=== PATIENT | male | born 1965 | race Caucasian/White ===

== ENCOUNTER 2020-02-10 14:00 | Outpatient (RCR) | payer BC, SELFPAY ==
--- NOTE | 2020-05-16 12:04 | MHC.PT.DC ---
[facility] [place] Office [place] Office [place] Office [address] Jeff Benavidez [address] [phone] F: [phone] F: [phone] F: [phone] F: [phone] Physical Therapy Discharge Report Diagnosis: NECK PAIN AND BACK PAIN Date of Surgery: NA Date of Evaluation: 01/27/20 Date of Discharge: Treatments to Date: 5 Cancellations to Date: 0 No Shows to Date: 0 Discharge Status: Patient Elected to Stop Discharge Summary: Pt LAST SEEN ON 02/10/20. PER THAT NOTE:02/10/20 pt wants PT on hold x 2 weeks to verify insurance coverage. NO FURTHER APPTS SCHEDULED Electronically signed by: CHRISTINA KC PT Please sign and return to therapist. Thank you for your referral.
--- NOTE | 2020-05-16 12:05 | MHC.PT.DC ---
[facility] [place] Office [place] Office [place] Office [address] Jeff Benavidez [address] [phone] F: [phone] F: [phone] F: [phone] F: [phone] Physical Therapy Discharge Report Diagnosis: NECK PAIN AND BACK PAIN Date of Surgery: NA Date of Evaluation: 01/27/20 Date of Discharge: Treatments to Date: 5 Cancellations to Date: 0 No Shows to Date: 0 Discharge Status: Patient Elected to Stop Discharge Summary: Pt LAST SEEN ON 02/10/20. PER THAT NOTE:02/10/20 pt wants PT on hold x 2 weeks to verify insurance coverage. NO FURTHER APPTS SCHEDULED Electronically signed by: CHRISTINA KC PT Please sign and return to therapist. Thank you for your referral.
== END 2020-05-16 12:05 | disposition other institution (70) ==
LOC: HO.PT 14:00
PROVIDERS: PCP Internal Medicine; Visit Provider Internal Medicine
DX: M54.9 Dorsalgia, unspecified (principal); M54.2 Cervicalgia
CPT/HCPCS: 97110; 97162

== ENCOUNTER 2020-02-28 10:03 | Outpatient (REF) | payer BC, SELFPAY ==
[2020-02-28 11:35] LABS: Anion Gap 13 (12-20); Blood Urea Nitrogen 15 mg/dL (9-16); Calcium 9.1 mg/dL (8.4-10.2); Carbon Dioxide 26 mmol/L (22-29); Chloride 105 mmol/L (96-108); Estimated Glomerular Filt Rate > 60; Glucose Fasting 92 mg/dL (60-99); Potassium 4.4 mmol/l (3.3-5.1); Sodium 140 mmol/L (135-145)
[2020-02-28 12:11] LABS: Folate 15.4 ng/mL (> or = 4.0); Vitamin B12 376 pg/mL (200-900)
== END 2020-02-28 10:04 | disposition home or self-care (01) ==
LOC: HO.LAB 10:03
PROVIDERS: PCP Internal Medicine; Visit Provider Psychiatry & Neurology Neurology
DX: R20.2 Paresthesia of skin (principal)
CPT/HCPCS: 80048; 82550; 82607; 82746; 86618

== ENCOUNTER 2021-03-18 12:47 | Outpatient (REF) | payer OTHER, SELFPAY | END 2021-03-18 12:48 | disposition home or self-care (01) | LOC: HO.LAB 12:47 | PROVIDERS: Visit Provider Urology | DX: Z12.5 Encounter for screening for malignant neoplasm of prostate (principal); N32.0 Bladder-neck obstruction | CPT/HCPCS: 36415; 84153 ==

== ENCOUNTER → 2021-03-20 16:03 | Outpatient (BNVA) | payer OTHER, SELFPAY | PROVIDERS: PCP Internal Medicine; Visit Provider Urology ==

== ENCOUNTER 2023-03-18 11:39 | Outpatient (AMB) | payer BC, SELFPAY ==
[2023-03-18 11:42] VITALS: BP 114/70; PULSE 100; O2SAT 98; BMI 33.9
--- NOTE | 2023-03-18 11:42 | MHC.PC.OV ---
Vital Signs 03/18/23 11:42 Height 6 ft 2 in Weight 264 lb BMI 33.9 BP 114/70 Blood Pressure Location Lt brachial Position Sitting Pulse 100 Pulse Source Pulse Oximeter Pulse Oximetry (%) 98 Oxygen Delivery Method Room Air Intake Visit Reasons: Ear popping, left ear more than the right Train Operations Supervisor Required: No Machine Set Up Operator Paper Goods: Not Required per policy Accompanied by: Self / Same As Patient Allergies NUT FLAVOR Allergy (Unknown, Uncoded 03/18/23 11:42) ANAPHYLAXIS Medication List - Last Reconciled 03/19/23 by Farhan Gallo MD albuterol sulfate 90 mcg/actuation 2 puffs inhalation Q6H PRN naproxen (Naprosyn) 500 mg PO BID PRN promethazine 12.5 mg PO BID tamsulosin 0.8 mg (2 x 0.4 mg) PO BEDTIME 90 days Tobacco use date assessed: 06/12/22 Dental Screening Dental Screen Date: 03/18/23 Did you have a dental visit in the last 12 months?: Yes Did you have a dental problem in the last 6 months where you did not have access to dental care?: No Was dental information given to patient?: Patient has dentist HPI Ear popping, left ear more than the right HPI Details left ear pain chronically PFSH Medical History Eczema Surgical History History of surgery History of cataract surgery Family History Father No problems noted. Mother No problems noted. Sister Cervical cancer Social History Housing: House Alcohol intake: current Alcohol intake frequency: 0-2 drinks per day Patient Tobacco Use Status: Never used Tobacco Second Hand Smoke Exposure: No service: No Current occupational status: employed Cognitive needs: No Hearing needs: No Vision needs: No Questionnaire Thrive Questionnaire Date Thrive assessed: 06/12/22 PASTOR-7 AMB Questionnaire PASTOR-7 Date PASTOR - 7 assessed: 06/12/22 Source: Developed by Drs. Flo French, Irais Espinoza, Nixon Barroso and colleagues, with an educational reny from [email or web address]. Review of Systems Const Denies chills, Denies headache(s) and Denies weight loss ENT Denies headache(s) Card Denies chest pain, Denies syncope, Denies irregular heart rhythm and Denies dyspnea Resp Denies chest congestion, Denies cough and Denies dyspnea GI Denies abdominal pain, Denies change in stool character, Denies nausea and Denies vomiting Musc Denies deformity and Denies joint swelling Neuro Denies syncope and Denies headache(s) Physical exam (Primary Care) Vital Signs: Last Vital Signs Pulse 100 03/18/23 11:42 BP 114/70 03/18/23 11:42 Pulse Ox 98 03/18/23 11:42 Oxygen Delivery Method Room Air 03/18/23 11:42 BMI result Body Mass Index 33.9 Tobacco/Smoking Status: Tobacco use Status Tobacco use date assessed 06/12/22 03/18/23 11:46 Patient Tobacco Use Status Never used Tobacco 03/18/23 11:46 Thrive Assessment: Date of Thrive Assessment Date Thrive assessed 06/12/22 03/18/23 11:46 Const General: cooperative, comfortable, no acute distress and alert HENMT Other: TMs nl Neck Neck: Yes no lymphadenopathy Thyroid: Thyroid normal Resp Effort & Inspection: normal respiratory effort Auscultation: clear to auscultation bilaterally Percussion: percussion normal Cardio Jugular venous distension: no JVD Palpation: normal PMI Rate: regular rate Rhythm: regular rhythm Heart sounds: S1 normal heart sound present and S2 normal heart sound present GI Inspection: Yes normal to inspection Palpation (GI): No hepatosplenomegaly present Skin General skin exam: no rashes or lesions noted Extrem General: Yes no clubbing, cyanosis or edema Assessment and Plan Assessment & Plan (1) Otalgia of left ear: Code(s): H92.02 - Otalgia, left ear Plan: ref ent Orders: Referrals Ear/Nose/Throat Referral H92.09 - Otalgia, unspecified ear Coding Level of Care Code Est Pt Level 3 (52462) Diagnoses Otalgia of left ear H92.02
== END 2023-03-18 11:52 | disposition home or self-care (01) ==
PROVIDERS: PCP Internal Medicine; Visit Provider Internal Medicine
DX: H92.02 Otalgia, left ear (principal)
CPT/HCPCS: 99213

== ENCOUNTER 2023-03-20 13:17 | Outpatient (AMB) | payer BC, SELFPAY ==
--- NOTE | 2023-03-20 13:34 | MHC.OFFVIS ---
Intake Intake Visit Reasons: 1yr follow up Intake Note: Patient is Present for Follow Up Urology Medication: Tamsulosin Antibiotic Allergies: None Blood Thinners: None PVR: 0ml Allergies NUT FLAVOR Allergy (Unknown, Uncoded 03/20/23 13:41) ANAPHYLAXIS HPI HPI Comments History of Present Illness Details Omid ORTIZ is a very pleasant male. He is a patient of Dr Gallo. He was seen in the office today for the following urologic conditions. - lower urinary tract symptoms - erectile dysfunction Progressive disease Continuing weakness of stream Nocturia x2 Discussed GreenLight laser prostatectomy Erectile dysfunction still responsive to on demand sildenafil Prescription provided Recent job change now working for a [employer] Lower Urinary Tract Symptoms:? Current visit is for?further evaluation of, lower urinary tract symptoms, predominate obstructive symptoms.? Current treatment includes?alpha genie - tamsulosin 0.8 mg.? Prostate Symptom Score?04/07 Moderate (9-19), Bother 3.? Symptoms include?04/07 , incomplete emptying, weak stream, nocturia (>2), and are progressing.? PSA 03/10 1.3 ? Results from testing include? uroflow was performed ?No ? transrectal ultrasound ?No ? renal/bladder us ?No ? Prostate volume?30-50gm.? Testing at next visit will include?bladder scan.? Treatment plan?Continue with increased dose tamsulosin [facility] Medical History Eczema Surgical History History of surgery History of cataract surgery Family History Father No problems noted. Mother No problems noted. Sister Cervical cancer Social History Housing: House Alcohol intake: current Alcohol intake frequency: 0-2 drinks per day Patient Tobacco Use Status: Never used Tobacco Second Hand Smoke Exposure: No service: No Current occupational status: employed Cognitive needs: No Hearing needs: No Vision needs: No Review of Systems Const Denies chills and Denies fever(s) Card Reports no additional complaints and Denies syncope Resp Denies cough GI Denies abdominal pain and Denies heartburn Reports as per HPI and Denies change in libido Neuro Denies syncope Psych Denies change in libido Endo Denies change in libido Physical Exam Const General: cooperative, healthy appearing, comfortable and no acute distress Orientation/consciousness: patient oriented x3 HEENT Face and sinus: Yes normal facial exam Mouth: moist mucous membranes Neck Neck: Yes normal visual inspection, Yes full ROM and Yes trachea midline Chest Chest palpation & inspection: normal inspection of the chest Resp Effort & Inspection: normal respiratory effort, able to speak in complete sentences and no respiratory distress GI Inspection: Yes normal to inspection Back/Spine/Pelvis Cervical Spine: normal cervical lordosis Thoracic/Lumbar Spine: thoracic and lumbar spine normal to inspection Skin General skin exam: no rashes or lesions noted Neuro General: patient oriented x3, gait normal, tone normal and moves all extremities Extrem General: Yes normal to inspection and Yes capillary refill normal Office Procedures Post Void Residual Post Residual Void Post Void Residual (PVR): 0 24507-Gmwy Void Residual by ultrasound Results AMB Urinalysis, Automated UA Leukoctes 0 Ray/uL Last Edit by PADILLA Murphy on 03/20/23 13:49 UA Nitrite Negative Last Edit by Comfort Brooks Stephy on 03/20/23 13:49 UA Urobilinogen 0.2 mg/dL Last Edit by PADILLA Murphy on 03/20/23 13:49 UA Protein 15 mg/dL Last Edit by Comfort Brooks Stephy on 03/20/23 13:49 UA pH 6.5 Last Edit by PADILLA Murphy on 03/20/23 13:49 UA Blood 0 Doyle/uL Last Edit by Comfort Brooks Stephy on 03/20/23 13:49 UA Specific [place]ont 1.015 Last Edit by PADILLA Murphy on 03/20/23 13:49 UA Ketone Negative Last Edit by PADILLA Murphy on 03/20/23 13:49 UA Bilirubin 0 mg/dL Last Edit by PADILLA Murphy on 03/20/23 13:49 UA Glucose 0 mg/dL Last Edit by PADILLA Murphy on 03/20/23 13:49 Assessment & Plan Assessment & Plan (1) Erectile dysfunction: Code(s): N52.9 - Male erectile dysfunction, unspecified Qualifiers: Erectile dysfunction type: vasculogenic (2) Nocturia more than twice per night: Code(s): R35.1 - Nocturia Plan We discussed the nature of the decision and reasonable options for performing a prostate intervention. Interventions include TURP, GreenLight laser enucleation of the prostate, GreenLight laser ablation of the prostate, transurethral incision of the prostate, and I-Tend prostate procedure. Options such as medical therapy were discussed. The relative uncertainties and benefits related to each alternate procedure were adequately discussed. General surgical risks including, but not limited to, pain, bleeding, infection, myocardial infarction, pulmonary embolus, deep vein thrombosis and cerebrovascular accident which may result in further hospitalization were discussed. Full disclosure of the procedure as well as all major risks, benefits and complications were discussed including but not limited to damage to the urethra or bladder neck, recurrent BPH, retrograde ejaculation, bladder infection, urge, de salvador frequency, incomplete emptying, dysuria, remote chance of erectile dysfunction, epididymitis, and meatal stenosis. The success rate of the procedure was discussed. Success of the procedure in the short-term does not necessarily guarantee that long-term success will be maintained. Suitable follow up will need to be maintained. The patient showed understanding of discussion. An opportunity was provided for questions to be answered and wishes to proceed with the following procedure. - GreenLight laser prostatectomy Orders: Orders AMB Post Void Residual by ultrasound Today R35.1 - Nocturia AMB Urinalysis Automated Today Z13.9 - Encounter for screening, unspecified Medications: New sildenafil administer 60 minutes before intended activity 100 mg PO ONCE PRN 30 tabs 1RF sexual activity 30 days N52.9 - Male erectile dysfunction, unspecified Refilled tamsulosin 0.8 mg (2 x 0.4 mg) PO BEDTIME 180 caps 1RF 90 days Patient Instructions: Imaging studies, laboratory and physical exam results were discussed and reviewed in detail. No major barriers to patient understanding were identified. An opportunity to ask questions regarding the treatment plan was provided. All questions were answered. The patient expressed understanding and agreement with the above treatment plan. The patient is aware they should contact our office by phone for worsening of their current condition or the appearance of new urologic symptoms. Compliance is encouraged with any medications and followup testing that is ordered. It is a privilege to participate in the urologic care of your patient. If you have any questions or concerns regarding treatment for the above conditions, or other urologic issues, please do not hesitate to contact me. The office telephone contact is [phone]. This note is constructed using voice recognition software. While every effort has been made to ensure accuracy horticultural farmer errors may have been included. Yours sincerely, Dr Brijesh Camejo MD, [facility] - Urology Providers of Expert, Compassionate Care for the Genitourinary System Coding Level of Care Code Est Pt Level 4 (37421) Diagnoses Erectile dysfunction N52.9 Erectile dysfunction type: vasculogenic Nocturia more than twice per night R35.1 CPT Codes Post Residual Void - PVR CPT Code: 66901-Pdyn Void Residual by ultrasound ([id number])
== END 2023-03-20 14:06 | disposition home or self-care (01) ==
PROVIDERS: Visit Provider Urology
DX: N52.9 Male erectile dysfunction, unspecified (principal); R35.1 Nocturia; Z13.9 Encounter for screening, unspecified
CPT/HCPCS: 99214

== ENCOUNTER → 2023-03-20 13:17 | Outpatient (BNVA) | payer BC, SELFPAY | PROVIDERS: Visit Provider Urology | DX: N52.9 Male erectile dysfunction, unspecified (principal); R35.1 Nocturia | CPT/HCPCS: 51798; 81003 ==

== ENCOUNTER 2023-05-19 13:36 | Outpatient (AMB) | payer BC, SELFPAY ==
--- NOTE | 2023-05-19 13:38 | A.OFFVIS_ITS ---
Intake Intake Visit Reasons: Questions about Surgery(GreenLight Surgery) Intake Note: Patient presents today for a follow-up on: Questions about [facility] Surgery Meds- Sildenafil, Tamsulosin Allergies to Antibiotic- No Known Allergies Blood Thinner- None Detective Bureau Chief Required: No Allergies NUT FLAVOR Allergy (Unknown, Uncoded 05/19/23 13:40) ANAPHYLAXIS Medication List - Last Reconciled 05/19/23 by Brijesh Camejo MD albuterol sulfate 90 mcg/actuation 2 puffs inhalation Q6H PRN finasteride 5 mg PO DAILY 90 days naproxen (Naprosyn) 500 mg PO BID PRN promethazine 12.5 mg PO BID sildenafil 100 mg PO ONCE PRN 30 days tamsulosin 0.8 mg (2 x 0.4 mg) PO BEDTIME 90 days HPI HPI Comments History of Present Illness Details Omid ORTIZ is a very pleasant male. He is a patient of Dr Gallo. He was seen in the office today for the following urologic conditions. - lower urinary tract symptoms - erectile dysfunction Telemedicine Evaluation 15 min Consultation Shot Stats Misael Video attempted Trial of finasteride was relatively successful Progressive disease Continuing weakness of stream Nocturia x2 Erectile dysfunction still responsive to on demand sildenafil Prescription provided Recent job change now working for a [employer] Lower Urinary Tract Symptoms:? Current visit is for?further evaluation of, lower urinary tract symptoms, predominate obstructive symptoms.? Current treatment includes?alpha genie - tamsulosin 0.8 mg.? Prostate Symptom Score?04/07 Moderate (9-19), Bother 3.? Symptoms include?04/07 , incomplete emptying, weak stream, nocturia (>2), and are progressing.? PSA 03/10 1.3 ? Results from testing include? uroflow was performed ?No ? transrectal ultrasound ?No ? renal/bladder us ?No ? Prostate volume?30-50gm.? Testing at next visit will include?bladder scan.? Treatment plan?Continue with increased dose tamsulosin PFSH Medical History Eczema Surgical History History of surgery History of cataract surgery Family History Father No problems noted. Mother No problems noted. Sister Cervical cancer Social History Housing: House Alcohol intake: current Alcohol intake frequency: 0-2 drinks per day Patient Tobacco Use Status: Never used Tobacco Second Hand Smoke Exposure: No service: No Current occupational status: employed Cognitive needs: No Hearing needs: No Vision needs: No Review of Systems Const All systems reviewed & are unremarkable except as noted in HPI and below Reports no additional complaints Resp Reports no additional complaints GI Reports no additional complaints Reports as per HPI Musc Reports no additional complaints Physical Exam Telemedicine evaluation Appropriate responses Regular breathing rate and rhythm HEENT Head: Yes normal to inspection Ears: hearing grossly normal bilaterally Eyes General: appearance normal, both eyes and all related structures Neck Neck: Yes normal visual inspection Chest Chest palpation & inspection: normal inspection of the chest Resp Effort & Inspection: normal respiratory effort and able to speak in complete sentences Assessment & Plan Assessment & Plan (1) Erectile dysfunction: Code(s): N52.9 - Male erectile dysfunction, unspecified Qualifiers: Erectile dysfunction type: vasculogenic (2) Weak urinary stream: Code(s): R39.12 - Poor urinary stream Plan Three-month follow-up Medications: New finasteride 5 mg PO DAILY 90 tabs 1RF 90 days N40.1 - Benign prostatic hyperplasia with lower urinary tract symptoms, N13.8 - Other obstructive and reflux uropathy, R33.9 - Retention of urine, unspecified Refilled promethazine 12.5 mg PO BID 180 tabs 8RF R35.1 - Nocturia Patient Instructions: Imaging studies, laboratory and physical exam results were discussed and reviewed in detail. No major barriers to patient understanding were identified. An opportunity to ask questions regarding the treatment plan was provided. All questions were answered. The patient expressed understanding and agreement with the above treatment plan. The patient is aware they should contact our office by phone for worsening of their current condition or the appearance of new urologic symptoms. Compliance is encouraged with any medications and followup testing that is ordered. It is a privilege to participate in the urologic care of your patient. If you have any questions or concerns regarding treatment for the above conditions, or other urologic issues, please do not hesitate to contact me. The office telephone contact is [phone]. This note is constructed using voice recognition software. While every effort has been made to ensure accuracy pan reclaim processor errors may have been included. Yours sincerely, Dr Brijesh Camejo MD, [facility] - Urology Providers of Expert, Compassionate Care for the Genitourinary System Telehealth Telehealth Location of provider rendering services: practice address Location of patient: address on file Patient Identification confirmed using: Name, : Yes Telehealth method: voice only Patient verbally consented to treatment: Yes Patient verbally consented to billing insurance company: Yes Patient informed of any privacy concerns related to visit: Yes Coding Level of Care Code Tele Est Pt Level 3 (54609) Diagnoses Erectile dysfunction N52.9 Erectile dysfunction type: vasculogenic Weak urinary stream R39.12
== END 2023-05-19 15:03 | disposition home or self-care (01) ==
LOC: HO.HUSH 13:36
PROVIDERS: PCP Internal Medicine; Visit Provider Urology
DX: N52.9 Male erectile dysfunction, unspecified (principal); R39.12 Poor urinary stream
CPT/HCPCS: 99442

== ENCOUNTER → 2023-05-19 13:36 | Outpatient (BNVA) | payer BC, SELFPAY | PROVIDERS: PCP Internal Medicine; Visit Provider Urology ==

== ENCOUNTER 2023-08-19 14:03 | Outpatient (AMB) | payer BC, SELFPAY ==
--- NOTE | 2023-08-19 14:09 | A.OFFVIS_ITS ---
Intake Visit Reasons: Med Review(Finasteride) Intake Note: Patient is Present for Follow Up Med Review Urology Medication: Sildenafil, Tamsulosin, Finasteride Antibiotic Allergies: none Blood Thinners:none Patient states that he feels like the Finasteride is working well for him, states he does feel improvement Allergies NUT FLAVOR Allergy (Unknown, Uncoded 08/19/23 14:10) ANAPHYLAXIS Medication List - Last Reconciled 08/19/23 by Brijesh Camejo MD albuterol sulfate 90 mcg/actuation 2 puffs inhalation Q6H PRN finasteride 5 mg PO DAILY 90 days naproxen (Naprosyn) 500 mg PO BID PRN promethazine 12.5 mg PO BID sildenafil 100 mg PO ONCE PRN 30 days tamsulosin 0.8 mg (2 x 0.4 mg) PO BEDTIME 90 days HPI Comments Details: Omid ORTIZ is a very pleasant male. He is a patient of Dr Gallo. He was seen in the office today for the following urologic conditions. - lower urinary tract symptoms - erectile dysfunction Works at a [employer] Continue good response to combination therapy for urinary emptying Continue good response to on demand sildenafil Six-month follow-up repeat PSA Erectile dysfunction Responsive to on demand sildenafil Recent job change now working for a [id number] Lower Urinary Tract Symptoms:? Current visit is for?further evaluation of, lower urinary tract symptoms, predominate obstructive symptoms - progressive through single agent medication ? Current treatment includes?alpha genie - tamsulosin 0.8 mg and finasteride ? Prostate Symptom Score?04/07 Moderate (9-19), Bother 3.? Symptoms include?04/07 , incomplete emptying, weak stream, nocturia (>2), and are progressing.? PSA 03/10 1.3 ? Results from testing include? uroflow was performed ?No ? transrectal ultrasound ?No ? renal/bladder us ?No ? Prostate volume?30-50gm.? Testing at next visit will include?bladder scan.? Treatment plan?Continue with increased dose tamsulosin PFSH Medical History Eczema Surgical History History of surgery History of cataract surgery Family History Father No problems noted. Mother No problems noted. Sister Cervical cancer Social History Housing: House Alcohol intake: current Alcohol intake frequency: 0-2 drinks per day Patient Tobacco Use Status: Never used Tobacco Second Hand Smoke Exposure: No service: No Current occupational status: employed Cognitive needs: No Hearing needs: No Vision needs: No Review of Systems Const Denies chills and Denies fever(s) Card Reports no additional complaints and Denies syncope Resp Denies cough GI Denies abdominal pain and Denies heartburn Reports as per HPI and Denies change in libido Neuro Denies syncope Psych Denies change in libido Endo Denies change in libido Physical Exam Const General: cooperative, healthy appearing, comfortable and no acute distress Orientation/consciousness: patient oriented x3 HEENT Face and sinus: Yes normal facial exam Mouth: moist mucous membranes Neck Neck: Yes normal visual inspection, Yes full ROM and Yes trachea midline Chest Chest palpation & inspection: normal inspection of the chest Resp Effort & Inspection: normal respiratory effort, able to speak in complete sentences and no respiratory distress GI Inspection: Yes normal to inspection Back/Spine/Pelvis Cervical Spine: normal cervical lordosis Thoracic/Lumbar Spine: thoracic and lumbar spine normal to inspection Skin General skin exam: no rashes or lesions noted Neuro General: patient oriented x3, gait normal, tone normal and moves all extremities Extrem General: Yes normal to inspection and Yes capillary refill normal Assessment & Plan Assessment & Plan (1) Erectile dysfunction: Code(s): N52.9 - Male erectile dysfunction, unspecified Category: Medical Qualifiers: Erectile dysfunction type: vasculogenic (2) Weak urinary stream: Code(s): R39.12 - Poor urinary stream Category: Medical (3) Nocturia more than twice per night: Code(s): R35.1 - Nocturia Category: Medical Plan Six-month follow-up PSA Patient Instructions: Imaging studies, laboratory and physical exam results were discussed and reviewed in detail. No major barriers to patient understanding were identified. An opportunity to ask questions regarding the treatment plan was provided. All questions were answered. The patient expressed understanding and agreement with the above treatment plan. The patient is aware they should contact our office by phone for worsening of their current condition or the appearance of new urologic symptoms. Compliance is encouraged with any medications and followup testing that is ordered. It is a privilege to participate in the urologic care of your patient. If you have any questions or concerns regarding treatment for the above conditions, or other urologic issues, please do not hesitate to contact me. The office telephone contact is [phone]. This note is constructed using voice recognition software. While every effort has been made to ensure accuracy surplus property disposal agent errors may have been included. Yours sincerely, Dr Brijesh Camejo MD, [facility] - Urology Providers of Expert, Compassionate Care for the Genitourinary System Coding Level of Care Code Est Pt Level 3 (34221) Diagnoses Erectile dysfunction N52.9 Erectile dysfunction type: vasculogenic Weak urinary stream R39.12 Nocturia more than twice per night R35.1
== END 2023-08-19 14:45 | disposition home or self-care (01) ==
PROVIDERS: PCP Internal Medicine; Visit Provider Urology
DX: N52.9 Male erectile dysfunction, unspecified (principal); R39.12 Poor urinary stream; R35.1 Nocturia
CPT/HCPCS: 99213

== ENCOUNTER → 2023-08-19 14:03 | Outpatient (BNVA) | payer BC, SELFPAY | PROVIDERS: PCP Internal Medicine; Visit Provider Urology ==

== ENCOUNTER 2023-12-02 11:24 | Outpatient (AMB) | payer BC, SELFPAY ==
[2023-12-02 11:26] VITALS: BP 112/78; PULSE 106; O2SAT 95; BMI 34.1
--- NOTE | 2023-12-02 11:26 | MHC.PC.OV ---
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 Accompanied by: Self / Same As Patient Allergies NUT FLAVOR Allergy (Unknown, Uncoded 12/02/23 11:26) ANAPHYLAXIS Tobacco use date assessed: 06/12/22 Dental Screening Dental Screen Date: 12/02/23 Did you have a dental visit in the last 12 months?: Yes Did you have a dental problem in the last 6 months where you did not have access to dental care?: No Was dental information given to patient?: Patient has dentist HPI Regular visit HPI Details asthma; stable; uses rx occasionally PFSH Medical History Eczema Surgical History History of surgery History of cataract surgery Family History Father No problems noted. Mother No problems noted. Sister Cervical cancer Social History Housing: House Alcohol intake: current Alcohol intake frequency: 0-2 drinks per day Patient Tobacco Use Status: Never used Tobacco e-Cigarette/Vaping Use: Never Used Second Hand Smoke Exposure: No service: No Current occupational status: employed Cognitive needs: No Hearing needs: No Vision needs: No Questionnaire PHQ-9 Over the last 2 weeks, how often have you been bothered by any of the following problems? 1. Little interest or pleasure in doing things: not at all 2. Feeling down, depressed, or hopeless: not at all 3. Trouble falling or staying asleep, or sleeping too much: not at all 4. Feeling tired or having little energy: not at all 5. Poor appetite or overeating: not at all 6. Feeling bad about yourself - or that you are a failure or have let yourself or your family down: not at all 7. Trouble concentrating on things, such as reading the newspaper or watching television: not at all 8. Moving or speaking so slowly that other people could have noticed. Or the opposite - being so fidgety or restless that you have been moving around a lot more than usual: not at all 9. Thoughts that you would be better off or of hurting yourself in some way: not at all Total score: 0 Depression Screening Interpretation: Negative Depression Screening Done: Yes 75372 - PHQ-9 Billing: Yes Source: Developed by Drs. Flo French, Irais Espinoza, Nixon Barroso and colleagues, with an educational reny from [employer]. Thrive Questionnaire Date Thrive assessed: 12/02/23 I am a: Patient What is your living situation today?: I have a steady place to live THRIVE Score: 0 AUDIT C Alcohol Use Questionnaire (AUDIT-C) 1. How often do you have a drink containing alcohol?: Monthly or less 2. How many drinks containing alcohol do you have on a typical day when you are drinking?: 1 or 2 3. How often do you have six or more drinks on one occasion?: Never Total Score: 1 Score Reviewed/Action Taken: Yes PASTOR-7 AMB Questionnaire PASTOR-7 Date PASTOR - 7 assessed: 12/02/23 Feeling nervous, anxious, or on edge: 0 = Not at all Not being able to stop or control worryin = Not at all Worrying too much about different things: 0 = Not at all Trouble relaxin = Not at all Being so restless that it is hard to sit still: 0 = Not at all Becoming easily annoyed or irritable: 0 = Not at all Feeling afraid as if something awful might happen: 0 = Not at all Total PASTOR-7 score (0-4 normal; 5-9 mild; 10-14 moderate; 15-21 severe): 0 Source: Developed by Drs. Flo French, Nixon Rascon and colleagues, with an educational reny from [employer]. Review of Systems Const Denies chills, Denies headache(s) and Denies weight loss ENT Denies headache(s) Card Denies chest pain, Denies syncope, Denies irregular heart rhythm and Denies dyspnea Resp Denies chest congestion, Denies cough and Denies dyspnea GI Denies abdominal pain, Denies change in stool character, Denies nausea and Denies vomiting Musc Denies deformity and Denies joint swelling Neuro Denies syncope and Denies headache(s) Physical exam (Primary Care) Vital Signs: Last Vital Signs Pulse 106 H 12/02/23 11:26 BP 112/78 12/02/23 11:26 Pulse Ox 95 12/02/23 11:26 Oxygen Delivery Method Room Air 12/02/23 11:26 BMI result Body Mass Index 34.1 Tobacco/Smoking Status: Tobacco use Status Tobacco use date assessed 06/12/22 12/02/23 11:28 Patient Tobacco Use Status Never used Tobacco 12/02/23 11:28 e-Cigarette/Vaping Use Never Used 12/02/23 11:28 PHQ-9: PHQ-9 Score PHQ-9: Total score 0 12/02/23 11:28 Depression Screening Interpretation: Negative Thrive Assessment: Date of Thrive Assessment Date Thrive assessed 12/02/23 12/02/23 11:28 Const General: cooperative, comfortable, no acute distress and alert Neck Neck: Yes no lymphadenopathy Thyroid: Thyroid normal Resp Effort & Inspection: normal respiratory effort Auscultation: clear to auscultation bilaterally Percussion: percussion normal Cardio Jugular venous distension: no JVD Palpation: normal PMI Rate: regular rate Rhythm: regular rhythm Heart sounds: S1 normal heart sound present and S2 normal heart sound present GI Inspection: Yes normal to inspection Palpation (GI): No hepatosplenomegaly present Skin General skin exam: no rashes or lesions noted Extrem General: Yes no clubbing, cyanosis or edema Assessment and Plan Assessment & Plan (1) Asthma: Code(s): J45.909 - Unspecified asthma, uncomplicated Plan: stable; same rx Orders: Orders Lipid Panel Today Z13.220 - Encounter for screening for lipoid disorders Complete Blood Count Auto Diff Today Z13.0 - Encounter for screening for diseases of the blood and blood-forming organs and certain disorders involving the immune mechanism Comprehensive Cerulean. Panel Fast Today Z13.9 - Encounter for screening, unspecified Thyroid Stimulating Hormone Today Z13.29 - Encounter for screening for other suspected endocrine disorder Medications: Changed From albuterol sulfate 90 mcg/actuation 2 puffs inhalation Q6H PRN To Ventolin HFA 90 mcg/actuation (albuterol sulfate) 2 puffs inhalation Q6H PRN 18 grams 8RF shortness of breath or wheezing NS Coding Level of Care Code Est Pt Level 3 (63818) Diagnoses Asthma J45.909
== END 2023-12-02 11:44 | disposition home or self-care (01) ==
PROVIDERS: PCP Internal Medicine; Visit Provider Internal Medicine
DX: J45.909 Unspecified asthma, uncomplicated (principal)
CPT/HCPCS: 99213

== ENCOUNTER 2023-12-08 11:06 | Outpatient (REF) | payer BC, SELFPAY ==
[2023-12-08 11:33] LABS: MANUAL DIFF FLAG NO
[2023-12-08 12:11] LABS: Basophils Absolute Auto 0.1 X10*3/uL (0.0-0.2); Basophils Percent Auto 1.7 % (0-2); Eosinophils Absolute Auto 0.2 X10*3/uL (0.0-0.4); Eosinophils Percent Auto 2.8 % (0-4); Hematocrit 48.6 % (42.0-52.0); Hemoglobin 16.4 g/dl (14.0-18.0); Imm Gran Abs Auto 0.01 X10*3/uL (0.00-0.03); Imm Gran Pct Auto 0.2 % (0.0-0.4); Lymphocytes Absolute Auto 1.7 X10*3/uL (1.2-4.9); Mean Corpuscular HGB Conc 33.7 g/dl (31.0-36.0); Mean Corpuscular Hemoglobin 29.2 pg (27.0-33.0); Mean Corpuscular Volume 86.5 fL (80.0-98.0); Mean Platelet Volume 10.3 fL (9.4-12.4); Monocytes Absolute Auto 0.4 X10*3/uL (0.1-1.2); Monocytes Percent Auto 6.8 % (2-11); Neutrophils Absolute Auto 3.4 x10*3/uL (2.0-8.3); Neutrophils Percent Auto 59.5 % (45-73); Platelet Count 241 X10*3/uL (160-400); Red Blood Count 5.62 X10*6/uL (4.60-5.80); Red Cell Distribution Width 12.9 % (11.0-16.0); White Blood Count 5.7 X10*3/uL (4.8-10.8)
[2023-12-08 12:47] LABS: Alanine Aminotransferase 19 U/L (0-40); Albumin Level 4.7 g/dL (3.5-5.0); Alkaline Phosphatase 59 U/L (39-117); Anion Gap 12 (12-20); Aspartate Amino Transferase 18 U/L (5-37); Bilirubin Total 0.4 mg/dL (0.0-1.0); Blood Urea Nitrogen 12 mg/dL (9-16); Calcium 9.3 mg/dL (8.4-10.2); Carbon Dioxide 27 mmol/L (22-29); Chloride 105 mmol/L (96-108); Cholesterol 237 mg/dL (<200); Estimated Glomerular Filt Rate > 60; Glucose Fasting 95 mg/dL (60-99); HDL Cholesterol 42 mg/dL (>40); LDL Cholesterol Calculated 166 mg/dL (<100); Potassium 3.8 mmol/L (3.3-5.1); Sodium 140 mmol/L (135-145); Total Protein 7.4 g/dL (6.5-8.0); Triglycerides 148 mg/dL (<150)
[2023-12-08 13:03] LABS: Thyroid Stimulating Hormone 1.21 uIU/mL (0.32-4.0)
== END 2023-12-08 11:07 | disposition home or self-care (01) ==
LOC: HO.LAB 11:06
PROVIDERS: PCP Internal Medicine; Visit Provider Internal Medicine
DX: Z13.29 Encounter for screening for other suspected endocrine disorder (principal); Z13.0 Encounter for screening for diseases of the blood and blood-forming organs and certain disorders involving the immune mechanism; Z13.220 Encounter for screening for lipoid disorders; Z13.6 Encounter for screening for cardiovascular disorders
CPT/HCPCS: 36415; 80053; 80061; 84443; 85025

== ENCOUNTER 2024-02-08 11:36 | Outpatient (REF) | payer BC, SELFPAY ==
[2024-02-08 13:19] LABS: Prostate Specific Antigen 1.58 ng/mL (<0.05-4.0)
== END 2024-02-08 11:37 | disposition home or self-care (01) ==
LOC: HO.LAB 11:36
PROVIDERS: PCP Internal Medicine; Visit Provider Urology
DX: R39.12 Poor urinary stream (principal); Z12.5 Encounter for screening for malignant neoplasm of prostate
CPT/HCPCS: 36415; 84153

== ENCOUNTER 2024-02-19 14:19 | Outpatient (AMB) | payer BC, SELFPAY ==
--- NOTE | 2024-02-19 14:25 | A.OFFVIS_ITS ---
Intake Visit Reasons: 6m/PSA(set) Intake Note: Patient is present for PSA Follow Up Urology Med: Sildenafil, Tamsulosin, Finasteride Antibiotic Allergy: None Blood Thinner: None PSA: 02/08/2024 PSA: 1.58 Laser Engineer Required: No Accompanied by: Self / Same As Patient Allergies NUT FLAVOR Allergy (Unknown, Uncoded 02/19/24 14:26) ANAPHYLAXIS HPI Comments Details: Omid ORTIZ is a very pleasant male. He is a patient of Dr Gallo. He was seen in the office today for the following urologic conditions. - lower urinary tract symptoms - erectile dysfunction Works at a [employer] Continue good response to combination therapy for urinary emptying Continue good response to on demand sildenafil PSA stable on repeat 12 month follow-up Erectile dysfunction Responsive to on demand sildenafil Recent job change now working for a [employer] Lower Urinary Tract Symptoms:? Current visit is for?further evaluation of, lower urinary tract symptoms, predominate obstructive symptoms - progressive through single agent medication ? Current treatment includes?alpha genie - tamsulosin 0.8 mg and finasteride ? Prostate Symptom Score?04/07 Moderate (9-19), Bother 3.? Symptoms include?04/07 , incomplete emptying, weak stream, nocturia (>2), and are progressing.? PSA 03/10 1.3, 02/10 1.6 ? Results from testing include? uroflow was performed ?No ? transrectal ultrasound ?No ? renal/bladder us ?No ? Prostate volume?30-50gm.? Testing at next visit will include?bladder scan.? Treatment plan?Continue with increased dose [facility] Medical History Eczema Surgical History History of surgery History of cataract surgery Family History Father No problems noted. Mother No problems noted. Sister Cervical cancer Social History Housing: House Alcohol intake: current Alcohol intake frequency: 0-2 drinks per day Patient Tobacco Use Status: Never used Tobacco e-Cigarette/Vaping Use: Never Used Second Hand Smoke Exposure: No service: No Current occupational status: employed Cognitive needs: No Hearing needs: No Vision needs: No Review of Systems Const Denies chills and Denies fever(s) Card Reports no additional complaints and Denies syncope Resp Denies cough GI Denies abdominal pain and Denies heartburn Reports as per HPI and Denies change in libido Neuro Denies syncope Psych Denies change in libido Endo Denies change in libido Physical Exam Const General: cooperative, healthy appearing, comfortable and no acute distress Orientation/consciousness: patient oriented x3 HEENT Face and sinus: Yes normal facial exam Mouth: moist mucous membranes Neck Neck: Yes normal visual inspection, Yes full ROM and Yes trachea midline Chest Chest palpation & inspection: normal inspection of the chest Resp Effort & Inspection: normal respiratory effort, able to speak in complete sentences and no respiratory distress GI Inspection: Yes normal to inspection Back/Spine/Pelvis Cervical Spine: normal cervical lordosis Thoracic/Lumbar Spine: thoracic and lumbar spine normal to inspection Skin General skin exam: no rashes or lesions noted Neuro General: patient oriented x3, gait normal, tone normal and moves all extremities Extrem General: Yes normal to inspection and Yes capillary refill normal Assessment & Plan Assessment & Plan (1) Weak urinary stream: Code(s): R39.12 - Poor urinary stream Category: Medical (2) Nocturia more than twice per night: Code(s): R35.1 - Nocturia Category: Medical (3) Erectile dysfunction: Code(s): N52.9 - Male erectile dysfunction, unspecified Category: Medical Qualifiers: Erectile dysfunction type: vasculogenic Plan Twelve month follow-up Orders: Orders Prostate Specific Antigen 364 Days R35.1 - Nocturia Patient Instructions: Imaging studies, laboratory and physical exam results were discussed and reviewed in detail. No major barriers to patient understanding were identified. An opportunity to ask questions regarding the treatment plan was provided. All questions were answered. The patient expressed understanding and agreement with the above treatment plan. The patient is aware they should contact our office by phone for worsening of their current condition or the appearance of new urologic symptoms. Compliance is encouraged with any medications and followup testing that is ordered. It is a privilege to participate in the urologic care of your patient. If you have any questions or concerns regarding treatment for the above conditions, or other urologic issues, please do not hesitate to contact me. The office teleph one contact is [phone]. This note is constructed using voice recognition software. While every effort has been made to ensure accuracy insert operator errors may have been included. Yours sincerely, Dr Brijesh Camejo MD, [facility] - Urology Providers of Expert, Compassionate Care for the Genitourinary System Coding Level of Care Code Est Pt Level 3 (54350) Diagnoses Weak urinary stream R39.12 Nocturia more than twice per night R35.1 Erectile dysfunction N52.9 Erectile dysfunction type: vasculogenic
== END 2024-02-19 14:51 | disposition home or self-care (01) ==
LOC: HO.HUSH 14:19
PROVIDERS: PCP Internal Medicine; Visit Provider Urology
DX: R39.12 Poor urinary stream (principal); R35.1 Nocturia; N52.9 Male erectile dysfunction, unspecified
CPT/HCPCS: 99213

== ENCOUNTER → 2024-02-19 14:19 | Outpatient (BNVA) | payer BC, SELFPAY | PROVIDERS: PCP Internal Medicine; Visit Provider Urology ==

== ENCOUNTER 2024-10-20 07:58 | Outpatient (REF) | payer OTHER, SELFPAY ==
[2024-10-20 08:00] LABS: MANUAL DIFF FLAG NO
--- OUTSIDE RECORDS SUMMARY | 2024-10-20 08:01 | XMS_ITS | Patient Health Record ---
Author Organization [facility] Sirena Ruizley Address [address] [place] [address] Care Team Providers Care Administrative Analyst Name Role Phone Cleo MUNROE, Farhan Primary Care Provider Amalia Fay Unavailable [phone] Allergies Allergen (clinical drug ingredient) Drug/Non Drug Allergy documented on EMR Reaction Allergy Type Onset Date Status Nut Flavor (uncoded) anaphylaxis Allergy Active Reason For Referral No Information Medications Medication SIG (Take, Route, Frequency, Duration) Notes Start Date End Date Status Tamsulosin HCl 0.4 MG 1 capsule Orally O nce a day; Duration: 30 day(s) Active Albuterol Sulfate 108 (90 Base) MCG/ACT 1 puff as needed Inhalation every 4 hrs Active Promethazine HCl 12.5 MG 1 tablet as nee ded Orally every 6 hrs; Duration: 30 day(s) Active Naproxen 500 MG 1 tablet with food o r milk as needed Orally every 12 hrs Active Social History Tobacco Use: Social History Observation Description Date Details (start date - stop date) Never Smoker NA - NA Tobacco Use/Smoking Question Answer Notes Are you a: nonsmoker Additional Findings: Tobacco Non-User Current no n-smoker Alcohol Screen Question Answer Notes Did you have a drink contain ing alcohol in the past year? Yes How often did you have a dri nk containing alcohol in the past year? 2 to 3 times a week (3 points) Points 3 Interpretation Negative Tobacco use other than smoking: Question Answer Notes Are you an other tobacco user? No Plan Of Treatment Pending Test Test Name Order Date X ray : Foot, left 3V 05/09/2022 X ray : Foot, right 3V 05/09/2022 Insurance Providers Payer Name Payer Address Payer Phone Subscriber Number Group Number Insured Name Patient Relationship to Insured Coverage Start Date Coverage End Date [facility] [address] [place] [address] [phone] [id number] Omid Jones Self - patient is the insured Medical (General) History Medical History History ICD Code Eczema Surgical History Surgery Date(Month/Year) cataract surgery
[2024-10-20 08:50] LABS: Hematocrit 46.4 % (42.0-52.0); Hemoglobin 15.5 g/dl (14.0-18.0); Imm Gran Abs Auto 0.02 X10*3/uL (0.00-0.03); Imm Gran Pct Auto 0.3 % (0.0-0.4); Lymphocytes Absolute Auto 1.0 X10*3/uL (1.2-4.9); Mean Corpuscular HGB Conc 33.4 g/dl (31.0-36.0); Mean Corpuscular Hemoglobin 28.7 pg (27.0-33.0); Mean Corpuscular Volume 85.8 fL (80.0-98.0); NRBC Abs Auto 0.000 X10*3/uL (0.0-0.012); NRBC Pct Auto 0.0 /100WBC (0.0-0.2); Platelet Count 221 X10*3/uL (160-400); Red Blood Count 5.41 X10*6/uL (4.60-5.80); White Blood Count 6.5 X10*3/uL (4.8-10.8)
[2024-10-20 09:20] LABS: Alanine Aminotransferase 29 U/L (0-40); Albumin Level 4.3 g/dL (3.5-5.0); Alkaline Phosphatase 55 U/L (39-117); Anion Gap 11 (12-20); Aspartate Amino Transferase 29 U/L (5-37); Blood Urea Nitrogen 19 mg/dL (9-16); Calcium 8.6 mg/dL (8.4-10.2); Carbon Dioxide 25 mmol/L (22-29); Chloride 107 mmol/L (96-108); Estimated Glomerular Filt Rate > 60; Potassium 3.6 mmol/L (3.3-5.1); Sodium 139 mmol/L (135-145); Total Protein 6.8 g/dL (6.5-8.0)
== END 2024-10-20 07:59 | disposition home or self-care (01) ==
LOC: HO.MMNH2L 07:58
PROVIDERS: Visit Provider Student in an Organized Health Care Education/Training Program
DX: I10 Essential (primary) hypertension (principal); N40.0 Benign prostatic hyperplasia without lower urinary tract symptoms
CPT/HCPCS: 36415; 80053; 85025

== ENCOUNTER 2024-11-26 08:56 | Emergency (ER) | payer OTHER, SELFPAY ==
--- NOTE | ~2024-11-26 | XR_ITS ---
CLINICAL HISTORY: ? dislocation 2 view right shoulder Comparison: None provided Findings: Anterior inferior glenohumeral dislocation with an age-indeterminate Hill-Sachs fracture. No radiopaque foreign body. IMPRESSION: Anterior inferior glenohumeral dislocation with an age-indeterminate Hill-Sachs fracture. This document has been electronically signed by: Arleen Judd MD on 11/26/2024 10:32:44
--- NOTE | ~2024-11-26 | XR_ITS ---
CLINICAL HISTORY: post reduction 2 view right shoulder Comparison: CR - XR SHOULDER RT MIN 2V - 11/26/24 09:56 EDT Findings: No fractures or dislocations. Periarticular osteophyte formation at the acromioclavicular and glenohumeral joints, indicating osteoarthritis. No erosions. No radiopaque foreign body. IMPRESSION: 1. No acute findings This document has been electronically signed by: Archana Dooley MD on 11/26/2024 13:05:59
[2024-11-26 09:05] VITALS: BP 132/82; BP 150/84; PULSE 105; PULSE 88; RESP 12; TEMP 36.5; O2SAT 95; BMI 29.9
[2024-11-26 10:00] VITALS: BP 123/89; PULSE 81; RESP 16; O2SAT 96
--- NOTE | 2024-11-26 10:15 | ED_ITS ---
HPI - General Adult General Chief complaint: General Medical Stated complaint: R SHOULDER PAIN,? DISLOCATION PER EMS Time Seen by Provider: 11/26/24 09:47 Source: patient and family Limitations: no limitations History of Present Illness HPI narrative: 59-year-old male who has a history of recent left knee surgery currently in immobilizer, asthma, presents for right shoulder pain for suspected dislocation. Patient states he has had approximately 8 previous shoulder dislocations over the years. Patient reports today he was leaning and stretching with his right arm, using a grasper to fruit or nut picker an object when he felt his shoulder, out of place. He denies any direct trauma. He denies any paresthesia or process. He is right-hand dominant. He is not anticoagulated. Patient is otherwise feeling well. Patient received fentanyl 150 mcg with good relief. Patient has seen Dr. Helton in the past from ortho. Related Data Home Medications ?Medication ?Instructions ?Recorded ?Confirmed finasteride 5 mg tablet 5 mg PO BEDTIME 11/26/2401/12 promethazine 12.5 mg tablet 25 mg PO BEDTIME 11/26/24 11/26/24 Previous Rx's ?Medication ?Instructions ?Recorded naproxen 500 mg tablet (Naprosyn) 500 mg PO BID PRN pa in #60 tabs 11/28/21 sildenafil 100 mg tablet 100 mg PO ONCE PRN sexual ac tivity 02/19/24 30 days #30 tabs Ventolin HFA 90 mcg/actuation 2 puff inhalation Q6H [place] N 07/13/24 aerosol inhaler (albuterol sulfate) shortness of breat h or wheezing #18 grams tamsulosin 0.4 mg capsule 0.8 mg (2 x 0.4 mg) PO BEDTI ME 90 08/09/24 days #180 caps Allergies Allergy/AdvReac Type Severity Reaction Status Date / Time NUT FLAVOR Allergy Unknown ANAPHYLAXIS Uncoded 11/26/24 09:07 Review of Systems 2 Respiratory: Respiratory: Denies cough Gastrointestinal: Gastrointestinal: Denies abdominal pain Musculoskeletal: Musculoskeletal: Reports arthralgias PMFSH Past Medical History Medical History Eczema Surgical History History of surgery History of cataract surgery Family History Family History Father No problems noted. Mother No problems noted. Sister Cervical cancer Social History Social History Housing: House Alcohol intake: current Alcohol intake frequency: 0-2 drinks per day Patient Tobacco Use Status: Never used Tobacco Smoked in Last 30 Days: No e-Cigarette/Vaping Use: Never Used Second Hand Smoke Exposure: No Use of substances other than those prescribed or required for medical reasons: No Advance Directives: No Advance Directives Information Provided: Yes service: No Current occupational status: employed Cognitive needs: No Hearing needs: No Vision needs: No Physical Exam ED Vital Signs: Vital Signs - 24 hr 11/27/24 22:29 11/28/24 06:00 Temperature 98.0 F 98.2 F Pulse Rate 80 85 Respiratory Rate 14 16 Blood Pressure 133/78 143/90 H Pulse Oximetry 97 97 Oxygen Delivery Method Room Air Room Air BMI result Body Mass Index 29.9 Const General: cooperative and alert Resp Other: Lung sounds clear throughout Cardio Other: Regular rate and rhythm Extrem Other: Commercial Property Manager is 5/5 bilaterally. Radial pulses are +2 and equal bilaterally. There is decreased range of motion of the right arm secondary to pain. There is obvious defect to the right shoulder. There was no skin breakdown. Capillary refill is less than 2 seconds. Course Course Course Narrative: November 26, 2024. 12:15 p.m. given that the patient has sustained a due right shoulder dislocation combined with his left recent knee surgery where he is in a knee immobilizer that is locked at 0?, and patient's lives alone, he will have difficulty with ambulation and ADLs. He has been to rehab in the past. Case management and PT have been notified. JS. November 26, 2024, 3:00 p.m. patient has been seen and evaluated by PT, recommending masoud walker. Case management has also seen the patient, acute rehab referrals have been made. I feel that rehab would be the safest antibiotic option for the patient as he lives alone and has multiple comorbidities. He is agreeable to this. Time: 17:09 Date: 11/26/24 Provider: ABEL Guillen Patient in physician observation for case management needs. No complaints. VS stable. Patient is pending placement at facility/pending PT/CM eval. Will continue to monitor. Reevaluation(s) Reevaluation #1: Physician observation continued. Uneventful night. Vital signs stable. No complaints from nursing overnight. Med reconciliation reviewed and done. Pending disposition. Will continue to monitor. Time: 09:26 Reevaluation #2: Patient has been accepted to short-term rehab. He does not require medical admission to the hospital at this time. VS are stable. Physician observation discontinued at this time. Stable for discharge to rehab. Time: 14:09 Medications Administered Generic Name Dose Route Start Last Admin Trade Name Freq PRN Reason Stop Dose Admin Finasteride 5 mg 11/26/24 22:00 11/27/24 22:15 Finasteride 5 Mg Tablet PO 5 mg BEDTIME ROGER Administration Promethazine HCl 25 mg 11/26/24 22:00 11/27/24 22:15 Promethazine Hcl 25 Mg Tablet PO 25 mg BEDTIME ROGER Administration Tamsulosin HCl 0.8 mg 11/26/24 22:00 11/27/24 22:14 Tamsulosin Hcl 0.4 Mg Capsule PO 0.8 mg BEDTIME ROGER Administration Discontinued Medications Generic Name Dose Route Start Last Admin Trade Name Freq PRN Reason Stop Dose Admin Lidocaine HCl 10 ml 11/26/24 10:45 11/26/24 10:47 Lidocaine Hcl 1 % Mpf 5 Ml Vial INFILTRATI 11/26/24 10:46 10 ml ONCE ONE Administration Morphine Sulfate 4 mg 11/26/24 09:45 11/26/24 09:56 Morphine Sulfate 4 Mg/Ml Cartridge IVPUSH 11/26/24 09:46 4 mg ONCE ONE Administration Protocol Procedures Procedure Narrative Procedure Narrative: November 26, 2024, 12:00 p.m. Procedure: Ultrasound-guided right shoulder block for shoulder dislocation Indication: Right shoulder dislocation Risks, benefits, alternatives discussed. Procedural consent form signed, placed with chart. Landmarks identified using ultrasound of the right shoulder. The posterior aspect of the right shoulder was prepped with chlorhexidine. Sterile probe cover and sterile gel were utilized. A 20 gauge needle with lidocaine 1% was used to aspirate the joint space, identifying hemarthrosis. Injection of 5 mL of lidocaine 1% with good effect. Right arm was gently manipulated and easily reduced. Palpation of the right shoulder did not reveal any further defect. Radial pulses were +2. Capillary refills less than 2 seconds. Patient reported significant improvement. Confirmation with ultrasound confirmed reduction. Sling applied. Patient tolerated the procedure without immediate complications. Sterile technique was maintained throughout. Medical Decision Making Medical Decision Making MDM Narrative: 59-year-old male with suspected right shoulder dislocation on exam, confirmed with x-ray. Radiologist reading indicates possible Hill-Sachs deformity. This was discussed with the patient who confirms that he was aware that he has had previous injury due to multiple previous dislocations. I have had extensive discussion with the patient regarding options for reduction, including manipulation, which the patient is agreeable to. He had been medicated with additional analgesia and scapular manipulation and traction was utilized but unsuccessful. Patient requests an alternative method. I have reviewed all risks and benefits regarding conscious sedation as well as ultrasound-guided shoulder block. Patient has elected to proceed with ultrasound-guided shoulder block. Risks and benefits were reviewed, including but not limited to inability to reduce, risk for infection, underlying structural injury. Procedural consent reviewed and signed by the patient. We will witnessed by family member at the bedside as well as RN. Discussed with Dr. Meza. Differential Diagnosis Differential Diagnoses: The differential diagnosis associated with the presentation includes Fracture Dislocation Contusion Sprain Admission/Observation Consideration of admission/observation: Escalation of care including admission/observation considered Lab Data 11/26/24 13:04 11/26/24 13:04 Labs: Lab Results 11/26/24 11/26/24 Range/Units 13:04 15:52 WBC 8.5 (4.8-10.8) X10*3/uL RBC 5.04 (4.60-5.80) X10*6/uL Hgb 14.5 (14.0-18.0) g/dl Hct 42.8 (42.0-52.0) % MCV 84.9 (80.0-98.0) fL MCH 28.8 (27.0-33.0) pg MCHC 33.9 (31.0-36.0) g/dl RDW 13.0 (11.0-16.0) % Plt Count 212 (160-400) X10*3/uL MPV 10.7 (9.4-12.4) fL Immature Gran % (Auto) 0.2 (0.0-0.4) % Neut % (Auto) 87.6 H (45-73) % Lymph % (Auto) 6.5 L (20-40) % [place] % (Auto) 5.2 (2-11) % Eos % (Auto) 0.1 (0-4) % Baso % (Auto) 0.4 (0-2) % Lymph # (Auto) 0.6 L (1.2-4.9) X10*3/uL [place] # (Auto) 0.4 (0.1-1.2) X10*3/uL Eos # (Auto) 0.0 (0.0-0.4) X10*3/uL Baso # (Auto) 0.0 (0.0-0.2) X10*3/uL Abs Immat Gran (auto) 0.02 (0.00-0.03) X10*3/uL Absolute Neuts (auto) 7.4 (2.0-8.3) x10*3/uL Absolute Nucleated RBC 0.000 (0.0-0.012) X10*3/uL Nucleated RBC % (auto) 0.0 (0.0-0.2) /100WBC Sodium 140 (135-145) mmol/L Potassium 3.8 (3.3-5.1) mmol/L Chloride 109 H (96-108) mmol/L Carbon Dioxide 23 (22-29) mmol/L Anion Gap 12 (12-20) BUN 14 (9-16) mg/dL Creatinine 0.81 (0.5-1.4) mg/dL Estim Creat Clear Calc 130.3 Estimated GFR > 60 Random Glucose 106 (60-115) mg/dL Calcium 8.9 (8.4-10.2) mg/dL Total Bilirubin 0.5 (0.0-1.0) mg/dL AST 18 (5-37) U/L ALT 17 (0-40) U/L Alkaline Phosphatase 64 (39-117) U/L Total Protein 6.6 (6.5-8.0) g/dL Albumin 4.5 (3.5-5.0) g/dL Urine Color Yellow Urine Appearance Clear Urine pH >= 9.0 (5.0-9.0) Ur Specific [place] 1.010 (1.005-1.025) Urine Protein Negative (Neg-Trace) mg/dL Urine Glucose (UA) Negative (Negative) mg/dL Urine Ketones 15 (Negative) mg/dL Urine Blood Negative (Negative) Urine Nitrite Negative (Negative) Ur Leukocyte Esterase Negative (Negative) Radiology Impression Discussion of test interpretation with radiology: I have reviewed the radiologist's reading. Radiologist Impression: [address] [address] XRay Report Signed Patient: Omid Jones MR#: [id number] : 1965 Acct:[id number] Age/Sex: 59 / M ADM Date: 11/26/24 Loc: .ED Attending Dr: Ordering Physician: Catarino Yoon Date of Service: 11/26/24 Procedure(s): XR shoulder RT min 2V Accession Number(s): [id number] cc: Jovani Galloway PA-C; Catarino Yoon~ CLINICAL HISTORY: post reduction 2 view right shoulder Comparison: CR - XR SHOULDER RT MIN 2V - 11/26/24 09:56 EDT Findings: No fractures or dislocations. Periarticular osteophyte formation at the acromioclavicular and glenohumeral joints, indicating osteoarthritis. No erosions. No radiopaque foreign body. IMPRESSION: 1. No acute findings This document has been electronically signed by: Archana Dooley MD on 11/26/2024 13:05:59 Dictated By: Archana Dooley MD Signed By: <Electronically signed by Archana Dooley MD in [place]> 11/26/24 1306 DD/ 1305 TD/TT: 11/26/24 1305 Helmet Hat Sweatband Puncher: [address] [address] XRay Report Signed Patient: Omid Jones MR#: [id number] : 1965 Acct:[id number] Age/Sex: 59 / M ADM Date: 11/26/24 Loc: .ED Attending Dr: Ordering Physician: Priscilla Finn NP Date of Service: 11/26/24 Procedure(s): XR shoulder RT min 2V Accession Number(s): [id number] cc: Jovani Galloway PA-C; Priscilla Finn NP~ CLINICAL HISTORY: ? dislocation 2 view right shoulder Comparison: None provided Findings: Anterior inferior glenohumeral dislocation with an age-indeterminate Hill-Sachs fracture. No radiopaque foreign body. IMPRESSION: Anterior inferior glenohumeral dislocation with an age-indeterminate Hill-Sachs fracture. This document has been electronically signed by: Arleen Judd MD on 11/26/2024 10:32:44 Dictated By: Arleen Judd MD Signed By: <Electronically signed by Arleen Judd MD in [place]> 11/26/24 1033 DD/ 1032 TD/TT: 11/26/24 1032 Helmet Hat Sweatband Puncher: Prescription Management I considered prescription management with: Pain Medication Discharge Plan Discharge Clinical Impression: Dislocated shoulder Qualifiers: Encounter type: initial encounter Laterality: right Qualified Code(s): S43.004A - Unspecified dislocation of right shoulder joint, initial encounter Patient Disposition: Xfer Inpatient Rehab Fac Instructions: Shoulder Dislocation (ED) Additional Instructions: Recommend following up with orthopedics for further evaluation of your shoulder dislocation Continue NSAIDs and Tylenol as needed for pain If you develop new or worsening symptoms call 911 or come back to the ER for further evaluation. CLINICAL HISTORY: post reduction 2 view right shoulder Comparison: CR - XR SHOULDER RT MIN 2V - 11/26/24 09:56 EDT Findings: No fractures or dislocations. Periarticular osteophyte formation at the acromioclavicular and glenohumeral joints, indicating osteoarthritis. No erosions. No radiopaque foreign body. IMPRESSION: 1. No acute findings Prescriptions: No Action albuterol sulfate [Ventolin HFA] 90 mcg/actuation HFA aerosol inhaler 2 puff inhalation Q6H PRN (Reason: shortness of breath or wheezing) Qty: 18 8RF tamsulosin 0.4 mg capsule 0.8 mg PO BEDTIME 90 Days Qty: 180 1RF promethazine 12.5 mg tablet 25 mg PO BEDTIME finasteride 5 mg tablet 5 mg PO BEDTIME naproxen [Naprosyn] 500 mg tablet 500 mg PO BID PRN (Reason: pain) Qty: 60 0RF sildenafil 100 mg tablet 100 mg PO ONCE PRN (Reason: sexual activity) 30 Days Qty: 30 1RF Rx Instructions: administer 60 minutes before intended activity Referrals: Jovani Galloway PA-C [Primary Care Provider, Internal Medicine] [facility] [place]Provider Group] Print Language: Turkmen
[2024-11-26] MEDS: Lidocaine HCl 1 % MPF 5 ML VIAL 10 ML INFILTRATI (10:47)
[2024-11-26 13:09] LABS: MANUAL DIFF FLAG NO
[2024-11-26 13:12] LABS: Hematocrit 42.8 % (42.0-52.0); Hemoglobin 14.5 g/dl (14.0-18.0); Imm Gran Abs Auto 0.02 X10*3/uL (0.00-0.03); Imm Gran Pct Auto 0.2 % (0.0-0.4); Lymphocytes Absolute Auto 0.6 X10*3/uL (1.2-4.9); Mean Corpuscular HGB Conc 33.9 g/dl (31.0-36.0); Mean Corpuscular Hemoglobin 28.8 pg (27.0-33.0); Mean Corpuscular Volume 84.9 fL (80.0-98.0); NRBC Abs Auto 0.000 X10*3/uL (0.0-0.012); NRBC Pct Auto 0.0 /100WBC (0.0-0.2); Platelet Count 212 X10*3/uL (160-400); Red Blood Count 5.04 X10*6/uL (4.60-5.80); White Blood Count 8.5 X10*3/uL (4.8-10.8)
[2024-11-26 13:24] LABS: Alanine Aminotransferase 17 U/L (0-40); Albumin Level 4.5 g/dL (3.5-5.0); Alkaline Phosphatase 64 U/L (39-117); Anion Gap 12 (12-20); Aspartate Amino Transferase 18 U/L (5-37); Blood Urea Nitrogen 14 mg/dL (9-16); Calcium 8.9 mg/dL (8.4-10.2); Carbon Dioxide 23 mmol/L (22-29); Chloride 109 mmol/L (96-108); Creatinine Clr Calc Pharmacy 130.3; Estimated Glomerular Filt Rate > 60; Potassium 3.8 mmol/L (3.3-5.1); Sodium 140 mmol/L (135-145); Total Protein 6.6 g/dL (6.5-8.0)
--- NOTE | 2024-11-26 14:28 | MHC.CM.ED ---
Received consult for assessment of d/c needs: Pt presents to ED w/dislocated shoulder - reduced in ED and knee immobilizer in place from a previous surgery. Pt resides alone and does not feel he can manage his own care. PT eval pending. Pt has [facility] and auth cannot be obtained until regular business hours M-. Pt will board in the ED pending PT/OT eval and authorization. Will refer to Acute rehab and request OT eval. ED CM to follow.
--- NOTE | 2024-11-26 15:23 | PC.NURSE ---
Pt to transfer to overflow, report called to Rochelle LOZANO
[2024-11-26 16:00] VITALS: BP 143/90; PULSE 93; RESP 20; TEMP 36.7; O2SAT 97
[2024-11-26 16:02] LABS: Appearance Urine Clear; Glucose Urine UA Negative (Negative); PH >= 9.0 (5.0-9.0); Specific Gravity - Urine 1.010 (1.005-1.025)
--- NOTE | 2024-11-26 16:02 | PC.NURSE ---
med req pharmacy aware, will attempt to do med req soon
--- NOTE | 2024-11-26 16:16 | PHA.MEDREC ---
Pharmacy Consult ? Medication Reconciliation Pharmacy has completed the medication reconciliation.Med rec complete, spoke with patient and compared with pharmacy claim history
--- NOTE | 2024-11-26 17:00 | PC.NURSE ---
patient a&ox3, rr equal/non labored, pt currently denying pain/discomfort, rt upper extremity sling intact, pt has ble braces with recent surgery to LLE for lt quad rupture. Pt states he is in PT for the quad rupture and has exercises he performs on his own for increasing ROM. He states he takes naproxen and tylenol at home for pain which has a tendency to increase after doing the ROM exercises. Provider was notified and PRN mediations were ordered. As previously stated he currently has no pain to BLE or to the RUE. Pt also requesting masoud roller walker he used to the main ED if possible to be brought over here. Will speak with charge nurse to see if it is still available. Call le within reach, family at bedside, plan of care ongoing.
[2024-11-26 21:59] VITALS: BP 127/80; PULSE 82; RESP 16; TEMP 36.2; O2SAT 96
[2024-11-27 06:00] VITALS: BP 125/80; PULSE 79; RESP 16; TEMP 36.9; O2SAT 97
[2024-11-27 08:15] VITALS: BP 120/81; PULSE 81; RESP 16; TEMP 36.4; O2SAT 97
[2024-11-27 13:57] VITALS: BP 119/76; PULSE 90; RESP 18; TEMP 36.8; O2SAT 95
--- NOTE | 2024-11-27 15:44 | PC.NURSE ---
Pt A/O x 4, resting comfortably in bed with no s/s of distress. Denies pain at this time. RUE in sling, knee brace noted to BLE. Pt reports injury to right knee and recent surgery to left knee. Pt eval by PT and was recommended to use chris walker when OOB. Chris-walker brought from main ED and at pt bedside. Pt instructed to use call le and request assistance when getting OOB. Voiding moderate amounts of CYU in urinal. Pending rehab placement
[2024-11-27 22:29] VITALS: BP 133/78; PULSE 80; RESP 14; TEMP 36.7; O2SAT 97
[2024-11-28 06:00] VITALS: BP 143/90; PULSE 85; RESP 16; TEMP 36.8; O2SAT 97
--- NOTE | 2024-11-28 06:26 | PC.NURSE ---
Pt A/O x4. VSS on RA. No reports of pain. Calls appropriately for assistance. Call le and belongings placed within reach. No acute changes overnight. Awaiting disposition.
--- NOTE | 2024-11-28 11:22 | MHC.CM.PN ---
Addendum entered by Nohelia Barry 11/28/24 11:22: PT ALSO NOTES HE WAS ACTIVE WITH [facility] AND WOULD LIKE TO RETURN TO THEM AFTER REHAB THEY WERE ADDED TO HIS DISPO Original Note: CM MET WITH PT TO DISCUSS DC PLANNING HE UNDERSTANDS ACUTE REHABS DID NOT FEEL HE QUALIFIED FOR THAT LOC [facility] OFFERING STR BEDS PT ACCEPTED A BED A [facility] AND THEY WILL SUBMIT FOR INSURANCE AUTH
[2024-11-28 14:00] VITALS: BP 137/88; PULSE 88; RESP 16; TEMP 37.1; O2SAT 95
[2024-11-28 15:15] VITALS: BP 137/88; PULSE 88; RESP 16; TEMP 37.1; O2SAT 95
--- NOTE | 2024-11-28 15:43 | PC.NURSE ---
Called in report to [facility] spoke with Tisha. Patient assisted to car via wheelchair and expected arrival time 4pm
== END 2024-11-28 15:44 ==
PROVIDERS: Physician Assistant; Emergency Provider Emergency Medicine Emergency Medical Services; PCP Physician Assistant
DX: M24.411 Recurrent dislocation, right shoulder (principal); M25.511 Pain in right shoulder
CPT/HCPCS: 23650; 36415; 64450; 73030; 80053; 81003; 85025; 97162; 97165; 99284; 99285; J2003; J2270

== ENCOUNTER → 2024-11-26 09:45 | Outpatient (BNV) | payer OTHER, SELFPAY | PROVIDERS: Emergency Provider Emergency Medicine Emergency Medical Services; PCP Physician Assistant; Visit Provider Radiology Diagnostic Radiology | DX: S43.034A Inferior dislocation of right humerus, initial encounter (principal); M19.011 Primary osteoarthritis, right shoulder | CPT/HCPCS: 73030 ==

== ENCOUNTER 2025-01-31 14:27 | Outpatient (AMB) | payer OTHER, SELFPAY ==
--- NOTE | 2025-01-31 14:30 | A.OFFPC_ITS ---
Vital Signs 01/31/25 14:33 Height 6 ft 2 in Weight 232 lb 6 oz BMI 29.8 BP 120/78 Blood Pressure Location Lt brachial Position Sitting Pulse 105 H Pulse Source Pulse Oximeter Temp 97.1 F Temp Source Temporal Artery Scan Pulse Oximetry (%) 94 Oxygen Delivery Method Room Air Intake Visit Reasons: HUMPHREY Dr Gallo - see comments Intake Note: Patient is here today for HUMPHREY from Dr Gallo Door To Door Lead Generation Required: No Asset Manager: Not Required per policy Accompanied by: Self / Same As Patient Allergies NUT FLAVOR Allergy (Unknown, Uncoded 01/31/25 15:14) ANAPHYLAXIS Medication List - Last Reconciled 01/31/25 by Jovani Galloway PA-C finasteride 5 mg PO BEDTIME naproxen (Naprosyn) 500 mg PO BID PRN promethazine 25 mg PO BEDTIME sildenafil 100 mg PO ONCE PRN 30 days tamsulosin 0.8 mg (2 x 0.4 mg) PO BEDTIME 90 days Ventolin HFA 90 mcg/actuation (albuterol sulfate) 2 puffs inhalation Q6H PRN NS Tobacco use date assessed: 01/31/25 Dental Screening Dental Screen Date: 01/31/25 Did you have a dental visit in the last 12 months?: Yes Did you have a dental problem in the last 6 months where you did not have access to dental care?: No Was dental information given to patient?: Patient has dentist HPI HUMPHREY Dr Gallo - see comments HPI Details Patient is a 59-year-old male here today for a transfer of care visit. Previous PCP was Dr. Gallo. Patient has a past medical history significant for asthma, eczema, erectile dysfunction and BPH. .. Left quadriceps tendon rupture status post repair: The patient has a history of quadriceps tendon rupture, which occurred while walking, leading to a fall and subsequent surgery on October 21. The right ankle twisted, causing the knee to lock up, resulting in a fall where the patient bianca ded awkwardly, leading to the tendon rupture. .. BPH: Patient followed by [facility] and continues on finasteride and tamsulosin with good effect. Most recent PSA stable. .. Eczema/asthma: The patient has a history of eczema, for which promethazine is taken to manage flare-ups. Attempts to discontinue promethazine result in the need for cortisone shots, which have previously led to cataracts requiring surgery. Patient also has a asthma which has been well controlled with p.r.n. use of Ventolin inhaler, he otherwise denies any asthma exacerbations. .. Overweight (BMI 29): The patient reports a significant weight loss of 50 pounds, with 30 pounds lost prior to the accident and 20 pounds after, which was intentional to aid in knee recovery. The patient believes that weight loss will help in reducing the strain on the knees and speed up recovery. [facility] Medical History Eczema Surgical History History of knee surgery History of surgery History of cataract surgery Family History Father No problems noted. Mother No problems noted. Sister Cervical cancer Social History Housing: House Alcohol intake: current Alcohol intake frequency: a few times a month Patient Tobacco Use Status: Never used Tobacco e-Cigarette/Vaping Use: Never Used Second Hand Smoke Exposure: No service: No Current occupational status: employed Cognitive needs: Yes (Cane) Hearing needs: No Vision needs: Yes (Glasses) Questionnaire PHQ-9 Over the last 2 weeks, how often have you been bothered by any of the following problems? 1. Little interest or pleasure in doing things: not at all 2. Feeling down, depressed, or hopeless: not at all 3. Trouble falling or staying asleep, or sleeping too much: not at all 4. Feeling tired or having little energy: not at all 5. Poor appetite or overeating: not at all 6. Feeling bad about yourself - or that you are a failure or have let yourself or your family down: not at all 7. Trouble concentrating on things, such as reading the newspaper or watching television: not at all 8. Moving or speaking so slowly that other people could have noticed. Or the opposite - being so fidgety or restless that you have been moving around a lot more than usual: not at all 9. Thoughts that you would be better off or of hurting yourself in some way: not at all Total score: 0 Depression Screening Interpretation: Negative Depression Screening Done: Yes 80752 - PHQ-9 Billing: Yes Source: Developed by Drs. Flo French, Irais Espinoza, Nixon Barroso and colleagues, with an educational reny from [employer]. Thrive Questionnaire Date Thrive assessed: 01/31/25 I am a: Patient What is your living situation today?: I choose not to answer this question Within the past 12 months, did the food you bought not last and you didn't have the money to get more?: I choose not to answer this question Within the past 12 months, did you worry whether your food would run out before you got money to buy more?: I choose not to answer this question Do you have trouble paying for medicines?: No Do you have trouble getting transportation to medical appointments?: No Do you have trouble paying your heating and electricity bill?: No Do you have trouble taking care of your child, family member or friend?: No Do you have trouble with day-to-day activities such as bathing, preparing meals, shopping, managing finances, etc.?: No Are you currently unemployed and looking for a job?: No Are you interested in more education?: No Please select the resources that you would like help with: None Currently or been in a relationship where the following occur: I choose not to answer THRIVE Score: 0 AUDIT C Alcohol Use Questionnaire (AUDIT-C) 1. How often do you have a drink containing alcohol?: Monthly or less 2. How many drinks containing alcohol do you have on a typical day when you are drinking?: 1 or 2 3. How often do you have six or more drinks on one occasion?: Never Total Score: 1 PASTOR-7 AMB Questionnaire PASTOR-7 Date PASTOR - 7 assessed: 01/31/25 Feeling nervous, anxious, or on edge: 0 = Not at all Not being able to stop or control worryin = Not at all Worrying too much about different things: 0 = Not at all Trouble relaxin = Not at all Being so restless that it is hard to sit still: 0 = Not at all Becoming easily annoyed or irritable: 0 = Not at all Feeling afraid as if something awful might happen: 0 = Not at all Total PASTOR-7 score (0-4 normal; 5-9 mild; 10-14 moderate; 15-21 severe): 0 Source: Developed by Drs. Flo French, Irais Espinoza, Nixon Barroso and colleagues, with an educational reny from [employer]. PASTOR-7 Assessment Billing PASTOR-7 Assessment Tool: PASTOR-7 Assessment 40395 ACT Questionnaire In the past 4 weeks, how much of the time did your asthma keep you from getting as much done at work, school or at home?: None of the time During the past 4 weeks, how often have you had shortness of breath?: Not at all During the past 4 weeks, how often did your asthma symptoms wake you up at night or earlier than usual in the morning?: Not at all During the past 4 weeks, how often have you had to use your rescue inhaler or nebulizer medication?: Not at all How would you rate your asthma control during the past 4 weeks?: Completely controlled ACT Interpretation: Negative Score: 25 Review of Systems Const Denies headache(s) Eyes Denies loss of vision ENT Denies vertigo, Denies dizziness, Denies headache(s) and Denies sore throat Card Denies chest pain, Denies leg edema and Denies lightheadedness Resp Denies cough, Denies hemoptysis and Denies wheezing GI Denies abdominal pain, Denies melena, Denies constipation, Denies diarrhea and Denies vomiting Denies dysuria, Denies urinary frequency and Denies urinary urgency Musc Denies arthralgias, Denies joint swelling, Denies numbness and Denies tingling Neuro Denies Abnormal speech present, Denies behavioral changes, Denies vertigo, Denies dizziness, Denies headache(s), Denies loss of vision, Denies memory loss, Denies numbness and Denies tingling Psych Denies anxiety, Denies behavioral changes, Denies depression, Denies memory loss and Denies panic attacks Nabeel/Lymph Denies easy bleeding and Denies easy bruising Aller/Immun Denies wheezing Physical exam (Primary Care) Vital Signs: Last Vital Signs Temp 97.1 F 01/31/25 14:33 Pulse 105 H 01/31/25 14:33 BP 120/78 01/31/25 14:33 Pulse Ox 94 01/31/25 14:33 Oxygen Delivery Method Room Air 01/31/25 14:33 BMI result Body Mass Index 29.8 Tobacco/Smoking Status: Tobacco use Status Tobacco use date assessed 01/31/25 01/31/25 14:34 Patient Tobacco Use Status Never used Tobacco 01/31/25 14:52 e-Cigarette/Vaping Use Never Used 01/31/25 14:52 PHQ-9: PHQ-9 Score PHQ-9: Total score 0 01/31/25 14:31 Depression Screening Interpretation: Negative Thrive Assessment: Date of Thrive Assessment Date Thrive assessed 01/31/25 01/31/25 14:31 Currently or been in a relationship where the following occur: I choose not to answer Const General: healthy appearing, no acute distress, alert and awake Nutritional Appearance: well nourished Orientation/consciousness: oriented to person, oriented to place and oriented to time HENMT Ears: TM's normal bilaterally General nose exam: Normal nasal mucous membranes and turbinates present Eyes Conjunctivae: conjunctivae normal Sclerae: sclerae normal Pupils: Equal, round and reactive pupils present Neck Neck: Yes no lymphadenopathy and Yes no JVD Thyroid: Thyroid normal Carotids: no bruits Resp Effort & Inspection: normal respiratory effort and not tachypneic Auscultation: no crackles, no rales, no rhonchi and no wheezes Cardio Rate: regular rate Rhythm: regular rhythm Heart sounds: no murmurs and normal S1 and S2 GI Palpation (GI): Soft to palpation, nontender, no hepatomegaly and no splenomegaly Auscultation: normal bowel sounds Skin General skin exam: no rashes or lesions noted and dry skin Neuro General: oriented to person, oriented to place and oriented to time Cranial nerves: Yes Equal, round and reactive pupils present Speech: No Abnormal speech present Gait exam (Neuro): Normal gait present Motor exam (neuro): no tremor noted Extrem Right upper extremity: full ROM Left upper extremity: full ROM Right lower extremity: full ROM; no edema Left lower extremity: full ROM; no edema Psych Mental Status: mental status grossly normal Speech and movement: Normal speech and movement present Affect: normal affect Attitude: cooperative Thought process: Normal thought process present Coding Level of Care Code Est Pt Level 4 (12408) Diagnoses Intrinsic eczema L20.84 Eczema type: intrinsic Mixed hyperlipidemia E78.2 Hyperlipidemia type: mixed hyperlipidemia Hamstring tendinitis of left thigh M76.892 Mild intermittent asthma without complication J45.20 Asthma severity: mild Asthma persistence: intermittent Asthma complication type: uncomplicated Additional Codes PHQ-9 - 54028 - PHQ-9 Billing: Yes ([id number]) Asthma Control Questionnaire - ACT Interpretation: Negative ([id number]) PASTOR-7 Assessment Billing - PASTOR-7 Assessment Tool: PASTOR-7 Assessment 01490 ([id number]) Assessment & Plan Assessment & Plan (1) Eczema: Comment: 20 min reviewing chart eval pt and documenting Code(s): L30.9 - Dermatitis, unspecified Category: Medical Qualifiers: Eczema type: intrinsic Qualified Code(s): L20.84 - Intrinsic (allergic) eczema Plan: The plan includes continued management of eczema with promethazine to prevent flare-ups and avoid the need for cortisone shots, which have previously led to cataracts. (2) HLD (hyperlipidemia): Code(s): E78.5 - Hyperlipidemia, unspecified Category: Medical Qualifiers: Hyperlipidemia type: mixed hyperlipidemia Qualified Code(s): E78.2 - Mixed hyperlipidemia Plan: Patient has been working extensively on lifestyle and dietary modifications. Has been able to lose nearly 50 lb since 2022. Will recheck fasting lipid panel to ensure stable total cholesterol and LDL. (3) Hamstring tendinitis of left thigh: Code(s): M76.892 - Other specified enthesopathies of left lower limb, excluding foot Category: Medical Plan: Patient currently were stabilization brace on his left lower extremity and ambulating with a cane.. Patient is status post in house physical therapy for his left hamstring tendon rupture and repair. He is interested in outpatient therapy to continue gaining strength and stability in his lower left extremity. (4) Asthma: Code(s): J45.909 - Unspecified asthma, uncomplicated Category: Medical Qualifiers: Asthma severity: mild Asthma persistence: intermittent Asthma complication type: uncomplicated Qualified Code(s): J45.20 - Mild intermittent asthma, uncomplicated Plan: Patient does use Ventolin inhaler on a as needed basis. He otherwise reports his asthma has been well controlled without any recent asthma exacerbations or nighttime awakenings with asthma symptoms Orders: Orders Lipid Panel Today E78.2 - Mixed hyperlipidemia Comprehensive [place]. Panel Fast Today E78.2 - Mixed hyperlipidemia PT Evaluation and Treatment Today M76.892 - Other specified enthesopathies of left lower limb, excluding foot Complete Blood Count no Diff Today E78.2 - Mixed hyperlipidemia Medications: Changed From promethazine 25 mg PO BEDTIME L30.9 - Dermatitis, unspecified To promethazine 25 mg (2 x 12.5 mg) PO BEDTIME 180 tabs 2RF 90 days L30.9 - Dermatitis, unspecified Refilled Ventolin HFA 90 mcg/actuation (albuterol sulfate) 2 puffs inhalation Q6H PRN 18 grams 8RF shortness of breath or wheezing NS J45.909 - Unspecified asthma, uncomplicated
[2025-01-31 14:33] VITALS: BP 120/78; PULSE 105; TEMP 36.2; O2SAT 94; BMI 29.8
--- OUTSIDE RECORDS SUMMARY | 2025-01-31 17:21 | XMS_ITS | Patient Health Record ---
Author Organization [facility] [place]rena [place] Address [address] [place] [address] Care Team Providers Care Motor Vehicle Parts Interpreter Name Role Phone Cleo MUNROE, Farhan Primary Care Provider Amalia Fay Unavailable [phone] Allergies Allergen (clinical drug ingredient) Drug/Non Drug [...] Insured Coverage Start Date Coverage End Date [facility] [address] [place] [address] [phone] [id number] Omid Jones Self - patient is the insured Medical (General) History Medical History History ICD Code Eczema Surgical History Surgery Date(Month/Year) cataract surgery
--- OUTSIDE RECORDS SUMMARY | 2025-01-31 17:21 | XMS_ITS | Encounter Summary ---
Author Organization [facility] Address [address] [place] [address] Care Team Providers Care Real Estate Director Name Role Phone Flower Gamlbe MD Primary Care Provider [phone] Encounter Details Date Type Department Care Team (Late st Contact Info) Description 11/30/2024 Lab Requisition [facility] - Main Lab [address] [place] [address] Flower Gamble MD [address] [place] [address] Other asthma Social History Tobacco Use Types Packs/Day Years Used Date Smoking Tobacco: Never Assessed Sex and Gender Information Value Date Recorded Sex Assigned at Not on file Legal Sex Male 10:34 AM EDT Gender Identity Not on file Sexual Orientation Not on file documented as of this encounter Plan of Treatment Not on file documented as of this encounter Procedures Procedure Name Priority Date/Time Associated Diagnosis Comments COMPLETE BLOOD COUNT Routine 11/30/2024 4:48 AM EDT Other asthma COMPREHENSIVE METABOLIC PANEL Routine 11/30/2024 4:48 AM EDT Other asthma documented in this encounter Results * (ABNORMAL) Comprehensive metabolic panel (11/30/2024 4:48 AM EDT) Sodium 141 133 - 145 mmol/L LAB CHEMISTRY METHOD 11/30/2024 3:38 PM EDT [facility] Potassium 3.2(L) 3.5 - 5.5 mmol/L LAB CHEMISTRY METHOD 11/30/2024 3:38 PM EDT [facility] Chloride 106 96 - 110 mmol/L LAB CHEMISTRY METHOD 11/30/2024 3:38 PM EDT [facility] CO2 27 21 - 32 mmol/L LAB CHEMISTRY METHOD 11/30/2024 3:38 PM [facility] Anion Gap 8 3 - 11 LAB CHEMISTRY METHOD 11/30/2024 3:38 PM [facility] Glucose 69(L) 70 - 100 mg/dL LAB CHEMISTRY METHOD 11/30/2024 3:38 PM [facility] BUN 16 5 - 25 mg/dL LAB CHEMISTRY METHOD 11/30/2024 3:38 PM [facility] Creatinine 0.98 0.70 - 1.30 mg/dL LAB CHEMISTRY METHOD 11/30/2024 3:38 PM [facility] eGFR 90 >=60 mL/min/1. 73m2 LAB CHEMISTRY METHOD 11/30/2024 3:38 PM [facility] Comment:Calculation based on the Chronic Kidney Disease Epidemiology Collaboration (CKD-EPI) equation refit without adjustment for race. BUN/Creatinine Ratio 16.3 LAB CHEMISTRY METHOD 11/30/2024 3:38 PM [facility] Calcium 9.0 8.5 - 10.5 mg/dL LAB CHEMISTRY METHOD 11/30/2024 3:38 PM [facility] AST (SGOT) 9(L) 10 - 42 unit/L LAB CHEMISTRY METHOD 11/30/2024 3:38 PM [facility] ALT (SGPT) 17 10 - 60 unit/L LAB CHEMISTRY METHOD 11/30/2024 3:38 PM [facility] Alkaline Phosphatase 68 42 - 121 unit/L LAB CHEMISTRY METHOD 11/30/2024 3:38 PM [facility] Total Protein 5.9(L) 6.0 - 8.0 g/dL LAB CHEMISTRY METHOD 11/30/2024 3:38 PM [facility] Albumin 3.7 3.2 - 5.0 g/dL LAB CHEMISTRY METHOD 11/30/2024 3:38 PM [facility] Total Bilirubin 0.5 0.0 - 1.4 mg/dL LAB CHEMISTRY METHOD 11/30/2024 3:38 PM EDT [facility] Blood Venous blood specimen / Unknown Venipuncture / Unknown 11/30/2024 4:48 AM EDT 11/30/2024 11:54 AM EDT Flower Gamble MD LAB BLOOD ORDERABLES Final Resul t [facility] [address] [place] [address], [place] [phone] * (ABNORMAL) Complete blood count (11/30/2024 4:48 AM EDT) WBC 5.4 4.8 - 10.8 K/mcL LAB HEMETOLOGY METHOD 11/30/2024 1:30 PM EDT [facility] RBC 5.00 4.50 - 5.50 M/mcL LAB HEMETOLOGY METHOD 11/30/2024 1:30 PM EDT [facility] Hemoglobin 14.1 13.5 - 17.5 g/dL LAB HEMETOLOGY METHOD 11/30/2024 1:30 PM EDT [facility] Hematocrit 44.5 42.0 - 54.0 % LAB HEMETOLOGY METHOD 11/30/2024 1:30 PM EDT [facility] MCV 89.2 79.0 - 98.0 FL LAB HEMETOLOGY METHOD 11/30/2024 1:30 PM EDT [facility] MCH 28.3 27.0 - 32.0 pcg LAB HEMETOLOGY METHOD 11/30/2024 1:30 PM EDT [facility] MCHC 31.7(L) 32.0 - 37.0 g/dL LAB HEMETOLOGY METHOD 11/30/2024 1:30 PM EDT [facility] RDW 13.3 11.0 - 15.0 % LAB HEMETOLOGY METHOD 11/30/2024 1:30 PM EDT [facility] Platelets 204 130 - 400 K/mcL LAB HEMETOLOGY METHOD 11/30/2024 1:30 PM EDT [facility] MPV 11.3(H) 7.0 - 11.0 FL LAB HEMETOLOGY METHOD 11/30/2024 1:30 PM EDT [facility] NRBC 0.0 <1.0 % LAB HEMETOLOGY METHOD 11/30/2024 1:30 PM EDT [facility] NRBC Absolute 0.00 <0.10 K/mcL LAB HEMETOLOGY METHOD 11/30/2024 1:30 PM EDT [facility] Blood Venous blood specimen / Unknown Venipuncture / Unknown 11/30/2024 4:48 AM EDT 11/30/2024 11:54 AM EDT us Flower Gamble MD LAB BLOOD ORDERABLES Final Resul t [facility] [address] [place] [address], documented in this encounter Visit Diagnoses Diagnosis Other asthma documented in this encounter Care Teams Real Estate Director Relationship Specialty Start Date End Date Flower Gamble MD [address] [place] [address] PCP - General Hospitalist Medicine 11/30/24 documented as of this encounter
--- OUTSIDE RECORDS SUMMARY | 2025-01-31 17:21 | XMS_ITS ---
Author Name [facility] Organization Unknown Results Test Name/Text Value Interpretation Date Range Source CREATININE 0.8 mg/dL 10/23/2024 0.6 - 1.2 [facility] ANION GAP 11.0 mmol/L 10/23/2024 3 - 11 [facility] SODIUM 139.0 mmol/L 10/23/2024 137 - 144 [facility] CALCIUM, TOTAL 8.7 mg/dL 10/23/2024 8.4 - 10.2 [facility] POTASSIUM 4.0 mmol/L 10/23/2024 3.6 - 5.1 [facility] CHLORIDE 106.0 mmol/L 10/23/2024 100 - 111 [facility] GLUCOSE 94.0 mg/dL 10/23/2024 70 - 200 [facility] GLOMERULAR FILTRATION RATE ML/MIN/1.73 SQ M.PREDICTED 103.0 mL/min/1.73m*2 10/23/2024 60 - [facility] UREA NITROGEN 13.0 mg/dL 10/23/2024 8 - 24 [facility] BICARBONATE 22.0 mmol/L Below low normal 10/23/2024 23 - [address] [facility] [address] 1.23 10*3/uL 10/23/2024 0.7 - 4.5 [facility] BASOPHILS % 0.7 % 10/23/2024 0 - [address] [facility] [address] 0.66 10*3/uL 10/23/2024 0.2 - 0.8 [facility] EOSINOPHIL % 2.2 % 10/23/2024 0 - 6 [facility] MPV 10.8 fL 10/23/2024 9.4 - 12.4 [facility] ABSOLUTE IMMATURE GRANULOCYTES 0.03 10*3/uL 10/23/2024 [facility] LYMPHOCYTE % 16.9 % Below low normal 10/23/2024 20 - 50 [facility] NEUTROPHIL % 70.7 % Above high normal 10/23/2024 40 - 70 [facility] HEMATOCRIT 44.8 % 10/23/2024 40 - [address] [facility] [address] 0.05 10*3/uL 10/23/2024 0 - 0 .2 [facility] PLATELET COUNT 182.0 10*3/uL 10/23/2024 150 - 440 [facility] MCHC 33.3 g/dL 10/23/2024 32 - 36 [facility] HEMOGLOBIN 14.9 g/dL 10/23/2024 13 - 18 [facility] AUTO NRBC % 0.0 % 10/23/2024 0 - 0 [facility] IMMATURE GRANULOCYTE % 0.4 % 10/23/2024 0 - 0.[address] [facility] [address] 0.16 10*3/uL 10/23/2024 0 - 0.3 [facility] WHITE CELL COUNT 7.3 10*3/uL 10/23/2024 3.8 - 10.6 [facility] RED CELL COUNT 5.03 10*6/ L 10/23/2024 4.4 - 5.9 [facility] MONOCYTE % 9.1 % 10/23/2024 4 - 12 [facility] RBC DISTRIBUTION WIDTH 13.2 % 10/23/2024 11.6 - 14.[address] [facility] [address] 5.13 10*3/uL 10/23/2024 1.4 - 6.3 [facility] MCH 29.6 pg 10/23/2024 26 - 34 [facility] MCV 89.1 fL 10/23/2024 80 - 100 [facility] RED CELL COUNT 4.86 10*6/ L 10/22/2024 4.4 - 5.[address] [facility] [address] 1.37 10*3/uL 10/22/2024 0.7 - 4.[address] [facility] [address] 7.69 10*3/uL Above high normal 10/22/2024 1.4 - 6.3 [facility] MCH 28.6 pg 10/22/2024 26 - 34 [facility] HEMOGLOBIN 13.9 g/dL 10/22/2024 13 - 18 [facility] ABSOLUTE IMMATURE GRANULOCYTES 0.05 10*3/uL 10/22/[address] [facility] [address] 0.04 10*3/uL 10/22/2024 0 - 0.3 [facility] WHITE CELL COUNT 10.1 10*3/uL 10/22/2024 3.8 - 10. 6 [facility] NEUTROPHIL % 76.1 % Above high normal 10/22/2024 40 - 70 [facility] HEMATOCRIT 42.3 % 10/22/2024 40 - 52 [facility] MONOCYTE % 9.0 % 10/22/2024 4 - 12 [facility] RBC DISTRIBUTION WIDTH 13.1 % 10/22/2024 11.6 - 14.8 [facility] LYMPHOCYTE % 13.6 % Below low normal 10/22/2024 20 - [address] [facility] [address] 0.04 10*3/uL 10/22/2024 0 - 0 .[address] [facility] [address] 0.91 10*3/uL Above high normal 025 0.2 - 0.8 [facility] MPV 10.6 fL 10/22/2024 9.4 - 12.4 [facility] PLATELET COUNT 215.0 10*3/uL 10/22/2024 150 - 440 [facility] EOSINOPHIL % 0.4 % 10/22/2024 0 - 6 [facility] AUTO NRBC % 0.0 % 10/22/2024 0 - 0 [facility] MCHC 32.9 g/dL 10/22/2024 32 - 36 [facility] IMMATURE GRANULOCYTE % 0.5 % 10/22/2024 0 - 0.6 [facility] BASOPHILS % 0.4 % 10/22/2024 0 - 2 [facility] MCV 87.0 fL 10/22/2024 80 - 100 [facility] UREA NITROGEN 11.0 mg/dL 10/22/2024 8 - 24 [facility] CHLORIDE 108.0 mmol/L 10/22/2024 100 - 111 [facility] BICARBONATE 25.0 mmol/L 10/22/2024 23 - 32 [facility] ANION GAP 6.0 mmol/L 10/22/2024 3 - 11 [facility] GLUCOSE 97.0 mg/dL 10/22/2024 70 - 200 [facility] CREATININE 0.9 mg/dL 10/22/2024 0.6 - 1.2 [facility] CALCIUM, TOTAL 8.4 mg/dL 10/22/2024 8.4 - 10.2 [facility] GLOMERULAR FILTRATION RATE ML/MIN/1.73 SQ M.PREDICTED 100.0 mL/min/1.73m*2 10/22/2024 60 - [facility] SODIUM 139.0 mmol/L 10/22/2024 137 - 144 [facility] POTASSIUM 3.7 mmol/L 10/22/2024 3.6 - 5.1 [facility] CHLORIDE 106.0 mmol/L 10/21/2024 100 - 111 [facility] CREATININE 0.9 mg/dL 10/21/2024 0.6 - 1.2 [facility] POTASSIUM 4.0 mmol/L 10/21/2024 3.6 - 5.1 [facility] GLUCOSE 143.0 mg/dL 10/21/2024 70 - 200 [facility] CALCIUM, TOTAL 8.5 mg/dL 10/21/2024 8.4 - 10.2 [facility] BICARBONATE 22.0 mmol/L Below low normal 10/21/2024 23 - 32 [facility] UREA NITROGEN 14.0 mg/dL 10/21/2024 8 - 24 [facility] SODIUM 135.0 mmol/L Below low normal 10/21/2024 137 - 144 [facility] GLOMERULAR FILTRATION RATE ML/MIN/1.73 SQ M.PREDICTED 100.0 mL/min/1.73m*2 10/21/2024 60 - [facility] ANION GAP 7.0 mmol/L 10/21/2024 3 - 11 [facility] GLOMERULAR FILTRATION RATE ML/MIN/1.73 SQ M.PREDICTED 100.0 mL/min/1.73m*2 10/21/2024 60 - [facility] GLUCOSE 94.0 mg/dL 10/21/2024 70 - 200 [facility] BICARBONATE 24.0 mmol/L 10/21/2024 23 - 32 [facility] ANION GAP 9.0 mmol/L 10/21/2024 3 - 11 [facility] CHLORIDE 106.0 mmol/L 10/21/2024 100 - 111 [facility] CALCIUM, TOTAL 8.6 mg/dL 10/21/2024 8.4 - 10.2 [facility] POTASSIUM 3.5 mmol/L Below low normal 10/21/2024 3.6 - 5.1 [facility] SODIUM 139.0 mmol/L 10/21/2024 137 - 144 [facility] CREATININE 0.9 mg/dL 10/21/2024 0.6 - 1.2 [facility] UREA NITROGEN 20.0 mg/dL 10/21/2024 8 - 24 [facility] AUTO NRBC % 0.0 % 10/21/2024 0 - [address] [facility] [address] 4.53 10*3/uL 10/21/2024 1.4 - 6.3 [facility] BASOPHILS % 1.1 % 10/21/2024 0 - 2 [facility] PLATELET COUNT 208.0 10*3/uL 10/21/2024 150 - 440 [facility] ABSOLUTE IMMATURE GRANULOCYTES 0.01 10*3/uL 10/21/[address] [facility] [address] 0.22 10*3/uL 10/21/2024 0 - 0.3 [facility] HEMOGLOBIN 14.8 g/dL 10/21/2024 13 - [address] [facility] [address] 1.58 10*3/uL 10/21/2024 0.7 - 4.5 [facility] RBC DISTRIBUTION WIDTH 13.0 % 10/21/2024 11.6 - 14.8 [facility] NEUTROPHIL % 64.0 % 10/21/2024 40 - 70 [facility] MCH 29.9 pg 10/21/2024 26 - 34 [facility] MCV 89.7 fL 10/21/2024 80 - 100 [facility] MCHC 33.3 g/dL 10/21/2024 32 - [address] [facility] [address] 0.67 10*3/uL 10/21/2024 0.2 - 0.8 [facility] IMMATURE GRANULOCYTE % 0.1 % 10/21/2024 0 - 0.6 [facility] RED CELL COUNT 4.95 10*6/ L 10/21/2024 4.4 - 5.9 [facility] HEMATOCRIT 44.4 % 10/21/2024 40 - 52 [facility] MONOCYTE % 9.4 % 10/21/2024 4 - 12 [facility] EOSINOPHIL % 3.1 % 10/21/2024 0 - 6 [facility] MPV 10.5 fL 10/21/2024 9.4 - 12.[address] [facility] [address] 0.08 10*3/uL 10/21/2024 0 - 0 .2 [facility] LYMPHOCYTE % 22.3 % 10/21/2024 20 - 50 [facility] WHITE CELL COUNT 7.1 10*3/uL 10/21/2024 3.8 - 10.6 [facility] RH TYPE IN BLOOD POS 10/20/2024 [facility] ABO GROUP (TYPE) IN BLOOD O 10/20/2024 [facility] ABO GROUP (TYPE) IN BLOOD O 10/20/2024 [facility] ANTIBODY SCREEN NEG 10/20/2024 [facility] RH TYPE IN BLOOD POS 10/20/2024 [facility] PROTHROMBIN TIME (PT) 12.0 seconds 10/20/2024 10.4 - 13 [facility] INR 1.1 ratio 10/20/2024 0.9 - 1.1 [facility] History of Medication Use Medication Directions Dispensed Refills Start Date End Date Stat us rivaroxaban (XARELTO) 10 mg tablet Take 1 tablet (10 mg total) by mouth daily with dinner. 10/22/2024 active sennosides-docusate sodium (SENOKOT-S) 8.6-50 mg tablet Take 2 tablets by mouth nightly. 10/21/2024 active finasteride (PROSCAR) 5 mg tablet Take 5 mg by mouth Daily after dinner. active promethazine (PHENERGAN) 12.5 mg tablet Take 12.5 mg by mouth every 8 (eight) hours as needed for nausea or vomiting. active tamsulosin (FLOMAX) capsule Take 0.8 mg by mouth nightly. active Allergies Allergen Reaction Severity Comment Documented Date Source Statu s PEANUT ANAPHYLAXIS 10/15/2024 [facility] active Problems Problem Status Onset Date Problem Type Date of Resoluti on Source Quadriceps tendon rupture, left, sequela active EncounterDiagnosisAct [facility] Encounters Encounter Type Encounter Reason Primary Diagnosis Location Date Ambulatory Strain of left quadriceps muscle, fascia Strain of left quadriceps muscle, fascia and tendon, sequela [facility] 01/18/2025 Ambulatory Post-op Follow-up Post-op Follow-up [facility] h 12/21/2024 Ambulatory Post-op Follow-up Post-op Follow-up [facility] 12/07/2024 Ambulatory Strain of left quadriceps muscle, fascia Strain of left quadriceps muscle, fascia and tendon, sequela [facility] 11/16/2024 Ambulatory Strain of left quadriceps muscle, fascia Strain of left quadriceps muscle, fascia and tendon, sequela [facility] 11/02/2024 Inpatient Strain of left quadriceps muscle, fascia Strain of left quadriceps muscle, fascia and tendon, initial encounter [facility] 10/20/2024 Ambulatory Pain Pain [facility] 10/20/2024 Emergency Strain of left quadriceps muscle, fascia Strain of left quadriceps muscle, fascia and tendon, initial encounter [facility] 10/15/2024 Care Team Organization Name Specialty Phone Email Start Date End Da te [facility] 2024 [facility] 10/15/2024
--- OUTSIDE RECORDS SUMMARY | 2025-01-31 17:21 | XMS_ITS | Clinical Summary ---
Author Organization [facility] Address [address] [place] [address] Care Team Providers Care Museum Director Name Role Phone Jovani Galloway Unavailable Jovani Galloway Primary Care Provider Allergies Active Allergy Reactions Criticality Noted Date Comments Peanut Anaphylaxis High 10/15/2024 Medications tamsulosin (FLOMAX) capsule Take 0.8 mg by mouth nightly. Active promethazine (PHENERGAN) 12.5 mg tablet Take 12.5 mg by mouth every 8 (eight) hours as needed for nausea or vomiting. Active finasteride (PROSCAR) 5 mg tablet Take 5 mg by mouth Daily after dinner. Active Active Problems Problem Noted Date Diagnosed Date Quadriceps muscle rupture, left, initial encount er 10/20/2024 Quadriceps tendon rupture, left, initial encount er 10/20/2024 Encounters Date Type Department Care Team Description 01/18/2025 11:00 AM EDT Follow-Up [facility] Department of Orthopedic Surgery [address] [place] [address] Monster Garcia DO Quadriceps tendon rupture, left, sequela (Primary Dx) 12/21/2024 2:15 PM EDT Follow-Up [facility] of Orthopedic Surgery [address] [place] [phone] Monster Garcia DO Quadriceps tendon rupture, left, sequela (Primary Dx) 12/07/2024 2:00 PM EDT Follow-Up [facility] of Orthopedic Surgery [address] [place] [phone] Monster Garcia DO Quadriceps tendon rupture, left, sequela (Primary Dx) 11/16/2024 9:45 AM EDT Follow-Up [facility] Department of Orthopedic Surgery [address] [place] [address] Monster Garcia DO Quadriceps tendon rupture, left, sequela (Primary Dx) 11/02/2024 10:15 AM EDT Follow-Up [facility] of Orthopedic Surgery [address] [place] [address] Monster Garcia DO Quadriceps tendon rupture, left, sequela (Primary Dx) from Last 3 Months Social History Tobacco Use Types Packs/Day Years Used Date Smoking Tobacco: Never Smokeless Tobacco: Never Tobacco Cessation:Counseling Given: Not Answered [facility] Utilities Answer Date Recorded In the past 12 months has [facility] [employer] gas, oil, or water [employer] threatened to shut off services in your home? No 10/20/2024 Humiliation, Afraid, Rape, and Kick questionnair e Answer Date Recorded Within the last year, have y ou been afraid of your partner or ex-partner? No 10/20/2024 Within the last year, have y ou been humiliated or emotionally abused in other ways by your partner or ex-partner? No Within the last year, have y ou been kicked, hit, slapped, or otherwise physically hurt by your partner or ex-partner? No 10/20/2024 Within the last year, have y ou been raped or forced to have any kind of sexual activity by your partner or ex-partner? No 10/20/2024 Overall Financial Resource Strain (CARDIA) Answe r Date Recorded How hard is it for you to pa y for the very basics like food, housing, medical care, and heating? Not hard at all 10/20/2024 Hunger Vital Sign Answer Date Recorded Within the past 12 months, y ou worried that your food would run out before you got the money to buy more. Never true 10/21/19 25 Within the past 12 months, t he food you bought just didn't last and you didn't have money to get more. Never true 10/20/2024 PRAPARE - Transportation Answer Date Re corded In the past 12 months, has l ack of transportation kept you from medical appointments or from getting medications? No 10/20/2024 Lack of Transportation (Non-Medical) Not on file 10/20/2024 Housing Stability Vital Sign Answer Shahriar e Recorded Unable to Pay for Housing in the Last Year Not o n file 10/20/2024 Number of Times Moved in the Last Year Not on fi le 10/20/2024 At any time in the past 12 m [facility], were you homeless or living in a fdc (including now)? No 10/20/2024 Sex and Gender Information Value Date Recorded Sex Assigned at Not on file Legal Sex Male 6:54 PM EDT Gender Identity Not on file Sexual Orientation Not on file COVID-19 Exposure Response Date Recorded In the last 10 days, have yo u been in contact with someone who was confirmed or suspected to have Coronavirus/COVID-19? No / Unsure 01/18/2025 10:34 AM EDT Last Filed Vital Signs Vital Sign Reading Time Taken Comments Blood Pressure 114/72 10/26/2024 1:18 PM EDT Pulse 107 10/26/2024 1:18 PM EDT Temperature 36.6 C (97.8 F) 10/26/2024 1:18 PM EDT Respiratory Rate 18 10/26/2024 1:18 PM EDT Oxygen Saturation 92% 10/26/2024 1:18 PM EDT Inhaled Oxygen Concentration - - Weight 92.9 kg (204 lb 14.4 oz) 10/24/2024 4:43 AM EDT Height 188 cm (6' 2 ) 10/16/2024 11:39 PM EDT Body Mass Index 26.31 10/16/2024 11:39 PM EDT Plan of Treatment Upcoming Encounters Date Type Department Care Team (Late st Contact Info) Description 03/01/2025 1:00 PM EST Office Visit [facility] Department of Orthopedic Surgery [address] [place] [address] Monster Garcia DO [address] [place] [address] Health Maintenance Due Date Last Done Comments CT Colonography 1967 Colonoscopy 1967 Colorectal Cancer Screening 1967 FIT-DNA (Cologuard) 1967 FIT 1967 FOBT 1967 Flex Sigmoidoscopy - 5y 1967 HIV Screening 1967 DTaP,Tdap,and Td Vaccines (1 - Tdap) 07/15/1985 Hepatitis C Screening 07/15/1985 Hepatitis B Vaccines (1 of 3 - 19+ 3-dose series) 07/15/1986 Pneumococcal Vaccine, 50+ Ye ars (1 of 2 - PCV) 07/15/1986 Zoster Vaccines (1 of 2) 07/15/2017 COVID-19 Vaccine (1 - 2023-2 5 season) 2024 Influenza Vaccine (#1) 2024 HPV Vaccines Aged Out No longer eligi ble based on patient's age to complete this topic Hepatitis A Vaccines Aged Out No long er eligible based on patient's age to complete this topic MMR Vaccines Aged Out No longer eligi ble based on patient's age to complete this topic Meningococcal Vaccine Aged Out No micheline sharad eligible based on patient's age to complete this topic Medical Devices Implanted Type Area Report Checker Device Identifier Shelf Expiration Date Model / Serial / Lot 4.5mm Healicoil Suture [place], W/Two Minitape Sutures - [id number] Implanted:Qty : 1 on 10/21/2024 by Monster Garcia DO at [facility] Surgical Fixation Device [employer] [id number] / / Description:LOT: [id number] EXPIRATION: 12/29/2028 4.5mm Healicoil Suture [place], W/Two Minitape Sutures - [id number] Implanted:Qty : 1 on 10/21/2024 by Monster Garcia DO at [facility] Surgical Fixation Device [employer] [id number] / / Description:LOT: [id number] EXPIRATION: 07/07/2029 Insurance [facility] [employer] Advance Directives For more information, please contact: [phone] * Full Code (Latest Code Status on File) Date Activated Date Inactivated Comments 10/20/2024 12:47 PM 10/26/2024 5:17 PM Care Teams Museum Director Relationship Specialty Start Date End Date Jovani Galloway PA [address] [place] [id number] PCP - Insurance Payer PCP 10/15/24 Jovani Galloway PA [address] [place] [id number] PCP - General Family Medicine 10/15/24
--- OUTSIDE RECORDS SUMMARY | 2025-01-31 17:21 | XMS_ITS | Clinical Summary ---
Author Organization [facility] Address [address] [place] [address] Phone Care Team Providers Care Cupola Man Name Role Phone Flower Gamble MD Primary Care Provider [phone] Encounters Date Type Department Care Team Description 11/30/2024 Lab Requisition [facility] - Main Lab [address] [facility] [place] [address] Flower Gamble MD Other asthma from Last 3 Months Social History Tobacco Use Types Packs/Day Years Used Date Smoking Tobacco: Never Assessed Sex and Gender Information Value Date Recorded Sex Assigned at Not on file Legal Sex Male 10:34 AM EDT Gender Identity Not on file Sexual Orientation Not on file Plan of Treatment Health Maintenance Due Date Last Done Comments Colorectal Cancer Screening: Colonoscopy 1967 DTaP,Tdap,and Td Vaccines (1 - Tdap) 07/15/1986 Hepatitis B Vaccines (1 of 3 - 19+ 3-dose series) 07/15/1986 Pneumococcal Vaccine: 50+ Ye ars (1 of 2 - PCV) 07/15/1986 Zoster Vaccines (1 of 2) 07/15/2017 Depression Screening 04/20/2024 Cholesterol Screening (Lipid Panel) 11/28/2024 HIV Screening 11/28/2024 Hepatitis C Screening 11/28/2024 Social Influencers of Health Screening 11/28/2024 COVID-19 Vaccine ( - 2023-2 5 season) 2024 Influenza Vaccine (#1) 2024 RSV Immunization Adult Patie nts (1 - 1-dose 75+ series) 07/15/2042 HIB Vaccines Aged Out No longer eligi ble based on patient's age to complete this topic HPV Vaccines Aged Out No longer eligi ble based on patient's age to complete this topic Hepatitis A Vaccines Aged Out No long er eligible based on patient's age to complete this topic IPV Vaccines Aged Out No longer eligi ble based on patient's age to complete this topic MMR Vaccines Aged Out No longer eligi ble based on patient's age to complete this topic Meningococcal ACWY Vaccine Aged Out N o longer eligible based on patient's age to complete this topic Meningococcal B Vaccine Aged Out No l onger eligible based on patient's age to complete this topic RSV Immunization Patients Un robert 20 months Aged Out No longer eligible b ased on patient's age to complete this topic Varicella Vaccines Aged Out No longer eligible based on patient's age to complete this topic Procedures Procedure Name Priority Date/Time Associated Diagnosis Comments COMPREHENSIVE METABOLIC PANEL Routine 11/30/2024 4:48 AM EDT Other asthma COMPLETE BLOOD COUNT Routine 11/30/2024 4:48 AM EDT Other asthma from Last 3 Months Results * (ABNORMAL) Complete blood count (11/30/2024 4:48 AM EDT) WBC 5.4 4.8 - 10.8 K/mcL LAB HEMETOLOGY METHOD 11/30/2024 1:30 PM EDT [facility] RBC 5.00 4.50 - 5.50 M/mcL LAB HEMETOLOGY METHOD 11/30/2024 1:30 PM EDT [facility] Hemoglobin 14.1 13.5 - 17.5 g/dL LAB HEMETOLOGY METHOD 11/30/2024 1:30 PM EDT [facility] Hematocrit 44.5 42.0 - 54.0 % LAB HEMETOLOGY METHOD 11/30/2024 1:30 PM EDT [facility] MCV 89.2 79.0 - 98.0 FL LAB HEMETOLOGY METHOD 11/30/2024 1:30 PM EDT [facility] MCH 28.3 27.0 - 32.0 pcg LAB HEMETOLOGY [facility] M[facility]C 31.7(L) 32.0 - 37.0 g/dL LAB HEMETOLOGY METHOD 11/30/2024 1:30 PM EDT [facility] RDW 13.3 11.0 - 15.0 % LAB HEMETOLOGY METHOD 11/30/2024 1:30 PM EDT [facility] Platelets 204 130 - 400 K/mcL LAB HEMETOLOGY METHOD 11/30/2024 1:30 PM EDT [facility] MPV 11.3(H) 7.0 - 11.0 FL LAB HEMETOLOGY METHOD 11/30/2024 1:30 PM EDT [facility] NRBC 0.0 <1.0 % LAB HEMETOLOGY METHOD 11/30/2024 1:30 PM EDT [facility] NRBC Absolute 0.00 <0.10 K/mcL LAB HEMETOLOGY METHOD 11/30/2024 1:30 PM EDT [facility] Blood Venous blood specimen / Unknown Venipuncture / Unknown 11/30/2024 4:48 AM EDT 11/30/2024 11:54 AM EDT Flower Gamble MD LAB BLOOD ORDERABLES Final Resul t [facility] [address] [place] [address], * (ABNORMAL) Comprehensive metabolic panel (11/30/2024 4:48 AM EDT) Sodium 141 133 - 145 mmol/L LAB CHEMISTRY METHOD 11/30/2024 3:38 PM EDT [facility] Potassium 3.2(L) 3.5 - 5.5 mmol/L LAB CHEMISTRY METHOD 11/30/2024 3:38 PM EDT [facility] Chloride 106 96 - 110 mmol/L LAB CHEMISTRY METHOD 11/30/2024 3:38 PM EDT [facility] CO2 27 21 - 32 mmol/L LAB CHEMISTRY METHOD 11/30/2024 3:38 PM [facility] Anion Gap 8 3 - 11 LAB CHEMISTRY METHOD 11/30/2024 3:38 PM [facility] Glucose 69(L) 70 - 100 mg/dL LAB CHEMISTRY METHOD 11/30/2024 3:38 PM [facility] BUN 16 5 - 25 mg/dL LAB CHEMISTRY METHOD 11/30/2024 3:38 PM [facility] Creatinine 0.98 0.70 - 1.30 mg/dL LAB CHEMISTRY METHOD 11/30/2024 3:38 PM [facility] eGFR 90 >=60 mL/min/1. 73m2 LAB CHEMISTRY METHOD 11/30/2024 3:38 PM [facility] Comment:Calculation based on the Chronic Kidney Disease Epidemiology Collaboration (CKD-EPI) equation refit without adjustment for race. BUN/Creatinine Ratio 16.3 LAB CHEMISTRY METHOD 11/30/2024 3:38 PM [facility] Calcium 9.0 8.5 - 10.5 mg/dL LAB CHEMISTRY METHOD 11/30/2024 3:38 PM [facility] AST (SGOT) 9(L) 10 - 42 unit/L LAB CHEMISTRY METHOD 11/30/2024 3:38 PM [facility] ALT (SGPT) 17 10 - 60 unit/L LAB CHEMISTRY METHOD 11/30/2024 3:38 PM [facility] Alkaline Phosphatase 68 42 - 121 unit/L LAB CHEMISTRY METHOD 11/30/2024 3:38 PM [facility] Total Protein 5.9(L) 6.0 - 8.0 g/dL LAB CHEMISTRY METHOD 11/30/2024 3:38 PM [facility] Albumin 3.7 3.2 - 5.0 g/dL LAB CHEMISTRY METHOD 11/30/2024 3:38 PM [facility] Total Bilirubin 0.5 0.0 - 1.4 mg/dL LAB CHEMISTRY METHOD 11/30/2024 3:38 PM EDT [facility] Blood Venous blood specimen / Unknown Venipuncture / Unknown 11/30/2024 4:48 AM EDT 11/30/2024 11:54 AM EDT us Flower Gamble MD LAB BLOOD ORDERABLES Final Resul t [facility] [address] [place] [address], from Last [address] [place] [address] Care Teams Cupola Man Relationship Specialty Start Date End Date Flower Gamble MD [address] [place] [address] PCP - General Hospitalist Medicine 11/30/24
== END 2025-01-31 15:39 | disposition home or self-care (01) ==
LOC: HO.HMCH 14:28
PROVIDERS: PCP Physician Assistant; Visit Provider Physician Assistant
DX: L20.84 Intrinsic (allergic) eczema (principal); E78.2 Mixed hyperlipidemia; M76.892 Other specified enthesopathies of left lower limb, excluding foot; J45.20 Mild intermittent asthma, uncomplicated

== ENCOUNTER → 2025-01-31 14:27 | Outpatient (BNVA) | payer OTHER, SELFPAY | PROVIDERS: PCP Physician Assistant; Visit Provider Physician Assistant | DX: L20.84 Intrinsic (allergic) eczema (principal); J45.909 Unspecified asthma, uncomplicated; N52.9 Male erectile dysfunction, unspecified; N40.0 Benign prostatic hyperplasia without lower urinary tract symptoms; E66.3 Overweight; E78.2 Mixed hyperlipidemia; M76.892 Other specified enthesopathies of left lower limb, excluding foot; J45.20 Mild intermittent asthma, uncomplicated; Z68.29 Body mass index [BMI] 29.0-29.9, adult | CPT/HCPCS: 96127; 96160 ==

== ENCOUNTER 2025-02-13 10:53 | Outpatient (REF) | payer OTHER, SELFPAY ==
[2025-02-13 12:14] LABS: Prostate Specific Antigen 0.85 ng/mL (<0.05-4.0)
--- OUTSIDE RECORDS SUMMARY | 2025-02-13 13:31 | XMS_ITS | Patient Health Record ---
Author Organization [facility] Address [address] [facility] [place] [address] Care Team Providers Care Condominium Property Manager Name Role Phone Cleo MUNROE, Farhan Primary Care Provider Amalia Fay Unavailable [phone] Allergies Allergen (clinical drug ingredient) Drug/Non Drug [...] End Date [facility] [address] [place] [address] [phone] [id number] Omid Jones Self - patient is the insured Medical (General) History Medical History History ICD Code Eczema Surgical History Surgery Date(Month/Year) cataract surgery
--- OUTSIDE RECORDS SUMMARY | 2025-02-13 13:31 | XMS_ITS | Clinical Summary ---
Author Organization [facility] Address [address] [place] [address] Phone Care Team Providers Care Assembly Line Upholsterer Name Role Phone Flower Gamble MD Primary Care Provider [phone] Encounters Date Type Department Care Team Description 11/30/2024 Lab Requisition [facility] - Main Lab [address] [facility] [place] [address] Flower Gamble MD Other asthma [...] ars (1 of 2 - PCV) 07/15/1986 RSV Immunization Adult Patie nts (1 - Risk 50-74 years 1-dose series) 07/15/2017 Zoster Vaccines (1 of 2) 07/15/2017 Depression Screening 04/20/2024 Cholesterol Screening (Lipid Panel) 11/28/2024 HIV Screening 11/28/2024 Hepatitis C Screening 11/28/2024 Social Influencers of Health Screening 11/28/2024 COVID-19 Vaccine (1 - 2023-2 5 season) 2024 Influenza Vaccine (#1) 2024 HIB Vaccines Aged Out No longer eligi [...] LAB HEMETOLOGY METHOD 11/30/2024 1:30 PM EDT [facility] RBC 5.00 4.50 - 5.50 M/mcL LAB HEMETOLOGY METHOD 11/30/2024 1:30 PM EDT [facility] Hemoglobin 14.1 13.5 - 17.5 g/dL LAB HEMETOLOGY METHOD [facility] Hematocrit 44.5 42.0 - 54.0 % LAB HEMETOLOGY METHOD 11/30/2024 1:30 PM EDT [facility] MCV 89.2 79.0 - 98.0 FL LAB HEMETOLOGY METHOD 11/30/2024 [facility] MCH 28.3 27.0 - 32.0 pcg LAB HEMETOLOGY METHOD 11/30/2024 [facility] MCHC 31.7(L) 32.0 - 37.0 g/dL LAB HEMETOLOGY METHOD 11/30/2024 1:30 PM EDT [facility] RDW 13.3 11.0 - 15.0 % LAB HEMETOLOGY METHOD 11/30/2024 1:30 PM EDT [facility] Platelets 204 130 - 400 K/mcL LAB HEMETOLOGY METHOD 11/30/2024 1:30 PM EDT [facility] MPV 11.3(H) 7.0 - 11.0 FL LAB HEMETOLOGY METHOD 11/30/2024 1:30 PM EDT [facility] NRBC 0.0 <1.0 % LAB HEMETOLOGY METHOD 11/30/2024 1:30 PM EDT [facility] NRBC Absolute 0.00 <0.10 K/mcL LAB HEMETOLOGY METHOD 11/30/2024 1:30 PM EDT [facility] Blood Venous blood specimen / Unknown Venipuncture / Unknown 11/30/2024 4:48 AM EDT 11/30/2024 11:54 AM EDT Flower Gamble MD LAB BLOOD ORDERABLES Final Resul t [facility] [address] [place] [address], * (ABNORMAL) Comprehensive metabolic panel (11/30/2024 4:48 AM EDT) Sodium 141 133 - 145 mmol/L LAB CHEMISTRY METHOD 11/30/2024 3:38 PM EDT [facility] Potassium 3.2(L) 3.5 - 5.5 mmol/L LAB CHEMISTRY METHOD 11/30/2024 3:38 PM EDT [facility] Chloride 106 96 - 110 mmol/L LAB CHEMISTRY METHOD 11/30/2024 3:38 PM EDT [facility] CO2 27 21 - 32 mmol/L LAB CHEMISTRY METHOD 11/30/2024 3:38 PM [facility] Anion Gap 8 3 - 11 LAB CHEMISTRY METHOD 11/30/2024 3:38 PM [facility] Glucose 69(L) 70 - 100 mg/dL LAB CHEMISTRY METHOD 11/30/2024 3:38 PM [facility] BUN 16 5 - 25 mg/dL LAB CHEMISTRY METHOD 11/30/2024 3:38 PM [facility] Creatinine 0.98 0.70 - 1.30 mg/dL LAB CHEMISTRY METHOD 11/30/2024 3:38 PM [facility] eGFR 90 >=60 mL/min/1. 73m2 LAB CHEMISTRY METHOD 11/30/2024 3:38 PM [facility] Comment:Calculation based on the Chronic Kidney Disease Epidemiology Collaboration (CKD-EPI) equation refit without adjustment for race. BUN/Creatinine Ratio 16.3 LAB CHEMISTRY METHOD 11/30/2024 3:38 PM [facility] Calcium 9.0 8.5 - 10.5 mg/dL LAB CHEMISTRY METHOD 11/30/2024 3:38 PM [facility] AST (SGOT) 9(L) 10 - 42 unit/L LAB CHEMISTRY METHOD 11/30/2024 3:38 PM [facility] ALT (SGPT) 17 10 - 60 unit/L LAB CHEMISTRY METHOD 11/30/2024 3:38 PM [facility] Alkaline Phosphatase 68 42 - 121 unit/L LAB CHEMISTRY METHOD 11/30/2024 3:38 PM [facility] Total Protein 5.9(L) 6.0 - 8.0 g/dL LAB CHEMISTRY METHOD 11/30/2024 3:38 PM [facility] Albumin 3.7 3.2 - 5.0 g/dL LAB CHEMISTRY METHOD 11/30/2024 3:38 PM [facility] Total Bilirubin 0.5 0.0 - 1.4 mg/dL LAB CHEMISTRY METHOD 11/30/2024 3:38 PM EDT [facility] Blood Venous blood specimen / Unknown Venipuncture / Unknown 11/30/2024 4:48 AM EDT 11/30/2024 11:54 AM EDT us Flower Gamble MD LAB BLOOD ORDERABLES Final Resul t [facility] ([email or web address] [address] [place] [address], from Last [address] [place] [address] [place] [address] Care Teams Assembly Line Upholsterer Relationship Specialty Start Date End Date Flower Gamble MD [address] [place] [address] PCP - General Hospitalist Medicine 11/30/24
--- OUTSIDE RECORDS SUMMARY | 2025-02-13 13:31 | XMS_ITS | Clinical Summary ---
Author Organization [facility] Address [address] [place] [address] Care Team Providers Care Orthopaedic General Name Role Phone Jovani Galloway Unavailable [phone] Jovani Galloway Primary Care Provider Allergies Active [...] 01/18/2025 11:00 AM EDT Follow-Up [facility] Department of Orthopedic Surgery [address] [place] [address] Monster Garcia DO Quadriceps tendon rupture, left, sequela (Primary Dx) 12/21/2024 2:15 PM EDT Follow-Up [facility] of Orthopedic Surgery [address] [place] [phone] Monster Garcia DO Quadriceps tendon rupture, left, sequela (Primary Dx) 12/07/2024 2:00 PM EDT Follow-Up [facility] of Orthopedic Surgery [address] [place] [phone] Monster Garcia DO Quadriceps tendon rupture, left, sequela (Primary Dx) 11/16/2024 9:45 AM EDT Follow-Up [facility] Department of Orthopedic Surgery [address] [place] [address] Monster Garcia DO Quadriceps tendon rupture, left, sequela (Primary Dx) from Last 3 Months Social History Tobacco Use Types Packs/Day Years Used Date Smoking Tobacco: Never Smokeless Tobacco: Never Tobacco Cessation:Counseling Given: Not Answered [facility] [place] [facility] Utilities Answer Date Recorded In the past 12 months has th e [place], gas, oil, or water [employer] threatened to shut off services in your [...] time in the past 12 [facility], were you homeless or living in a longterm (including now)? No 10/20/2024 Sex and Gender [...] 1:00 PM EST Office Visit [facility] Department of Orthopedic Surgery [address] [place] [address] Monster Garcia, [address] [place] [address] Health Maintenance Due Date Last Done Comments [...] this topic Medical Devices Implanted Type Area Behaviorist Device Identifier Shelf Expiration Date Model / Serial / Lot 4.5mm Healicoil Suture [place], W/Two Minitape Sutures - [id number] Implanted:Qty : 1 on 10/21/2024 by Monster Garcia DO at [facility] Surgical Fixation Device [employer] [id number] / / Description:LOT: [id number] EXPIRATION: 12/29/2028 4.5mm Healicoil Suture [place], W/Two Minitape Sutures - [id number] Implanted:Qty : 1 on 10/21/2024 by Monster Garcia DO at [facility] Surgical Fixation Device [employer] [id number] / / Description:[id number]: [id number] EXPIRATION: 07/07/2029 Insurance [facility] [employer] Advance Directives For more information, please contact: [phone] * Full Code (Latest Code Status on File) Date Activated Date Inactivated Comments 10/20/2024 12:47 PM 10/26/2024 5:17 PM Care Teams Orthopaedic General Relationship Specialty Start Date End Date Jovani Galloway PA [address] [place] [id number] PCP - Insurance Payer PCP 10/15/24 Jovani Galloway PA [address] [place] [id number] PCP - General Family Medicine 10/15/24
--- OUTSIDE RECORDS SUMMARY | 2025-02-13 13:31 | XMS_ITS | Encounter Summary ---
Author Organization [facility] Address [address] [place] [address] Care Team Providers Care Battery Assembler Dry Cell Name Role Phone Flower Gamble MD Primary Care Provider [phone] Encounter Details Date Type Department Care Team (Late st Contact Info) Description 11/30/2024 Lab Requisition [facility] - Main Lab [address] [place] [address] Flower Gamble MD [address] [place] [address] Other asthma Social History Tobacco [...] LAB CHEMISTRY METHOD 11/30/2024 3:38 PM EDT [facility] Potassium 3.2(L) 3.5 - 5.5 mmol/L LAB CHEMISTRY METHOD 11/30/2024 3:38 PM EDT [facility] Chloride 106 96 - 110 mmol/L LAB CHEMISTRY METHOD 11/30/2024 3:38 PM EDT [facility] CO2 27 21 - 32 mmol/L LAB CHEMISTRY METHOD 11/30/2024 3:38 PM [facility] Anion Gap 8 3 - 11 LAB CHEMISTRY METHOD 11/30/2024 3:38 PM [facility] Glucose 69(L) 70 - 100 mg/dL LAB CHEMISTRY METHOD 11/30/2024 3:38 PM [facility] BUN 16 5 - 25 mg/dL LAB CHEMISTRY METHOD 11/30/2024 3:38 PM [facility] Creatinine 0.98 0.70 - 1.30 mg/dL LAB CHEMISTRY METHOD 11/30/2024 3:38 PM [facility] eGFR 90 >=60 mL/min/1. 73m2 LAB CHEMISTRY METHOD 11/30/2024 3:38 PM [facility] Comment:Calculation based on the Chronic Kidney Disease Epidemiology Collaboration (CKD-EPI) equation refit without adjustment for race. BUN/Creatinine Ratio 16.3 LAB CHEMISTRY METHOD 11/30/2024 3:38 PM [facility] Calcium 9.0 8.5 - 10.5 mg/dL LAB CHEMISTRY METHOD 11/30/2024 3:38 PM [facility] AST (SGOT) 9(L) 10 - 42 unit/L LAB CHEMISTRY METHOD 11/30/2024 3:38 PM [facility] ALT (SGPT) 17 10 - 60 unit/L LAB CHEMISTRY METHOD 11/30/2024 3:38 PM [facility] Alkaline Phosphatase 68 42 - 121 unit/L LAB CHEMISTRY METHOD 11/30/2024 3:38 PM [facility] Total Protein 5.9(L) 6.0 - 8.0 g/dL LAB CHEMISTRY METHOD 11/30/2024 3:38 PM [facility] Albumin 3.7 3.2 - 5.0 g/dL LAB CHEMISTRY METHOD 11/30/2024 3:38 PM [facility] Total Bilirubin 0.5 0.0 - 1.4 mg/dL LAB CHEMISTRY METHOD 11/30/2024 3:38 PM EDT [facility] Blood Venous blood specimen / Unknown Venipuncture / Unknown 11/30/2024 4:48 AM EDT 11/30/2024 11:54 AM EDT Flower Gamble MD LAB BLOOD ORDERABLES Final Resul t [facility] [address] [place] [address], [place] [phone] * (ABNORMAL) Complete blood count (11/30/2024 4:48 AM EDT) WBC 5.4 4.8 - 10.8 K/mcL LAB HEMETOLOGY METHOD 11/30/2024 1:30 PM EDT [facility] RBC 5.00 4.50 - 5.50 M/mcL LAB HEMETOLOGY METHOD 11/30/2024 1:30 PM EDT [facility] Hemoglobin 14.1 13.5 - 17.5 g/dL LAB HEMETOLOGY METHOD 11/30/2024 1:30 PM EDT [facility] Hematocrit 44.5 42.0 - 54.0 % LAB HEMETOLOGY METHOD 11/30/2024 1:30 PM EDT [facility] MCV 89.2 79.0 - 98.0 FL LAB HEMETOLOGY METHOD 11/30/2024 1:30 PM EDT [facility] MCH 28.3 27.0 - 32.0 pcg LAB HEMETOLOGY METHOD 11/30/2024 1:30 PM EDT [facility] MCHC 31.7(L) 32.0 - 37.0 g/dL LAB HEMETOLOGY METHOD 11/30/2024 1:30 PM EDT [facility] RDW 13.3 11.0 - 15.0 % LAB HEMETOLOGY METHOD 11/30/2024 1:30 PM EDT [facility] Platelets 204 130 - 400 K/mcL LAB HEMETOLOGY METHOD 11/30/2024 1:30 PM EDT [facility] MPV 11.3(H) 7.0 - 11.0 FL LAB HEMETOLOGY METHOD 11/30/2024 1:30 PM EDT [facility] NRBC 0.0 <1.0 % LAB HEMETOLOGY METHOD 11/30/2024 1:30 PM EDT [facility] NRBC Absolute 0.00 <0.10 K/mcL LAB HEMETOLOGY METHOD 11/30/2024 1:30 PM EDT [facility] Blood Venous blood specimen / Unknown Venipuncture / Unknown 11/30/2024 4:48 AM EDT 11/30/2024 11:54 AM EDT us Flower Gamble MD LAB BLOOD ORDERABLES Final Resul t [facility] [address] [place] [address], documented in this encounter Visit Diagnoses Diagnosis Other asthma documented in this encounter Care Teams Battery Assembler Dry Cell Relationship Specialty Start Date End Date Flower Gamble MD [address] [place] [address] PCP - General Hospitalist Medicine 11/30/24 documented as of this encounter
== END 2025-02-13 10:54 | disposition home or self-care (01) ==
LOC: HO.LAB 10:53
PROVIDERS: PCP Physician Assistant; Visit Provider Urology
DX: R35.1 Nocturia (principal); Z12.5 Encounter for screening for malignant neoplasm of prostate
CPT/HCPCS: 36415; 84153

== ENCOUNTER 2025-02-21 13:16 | Outpatient (AMB) | payer OTHER, SELFPAY ==
--- NOTE | 2025-02-21 13:31 | A.OFFVIS_ITS ---
Intake Visit Reasons: 1Y / PSA Intake Note: Patient is present for 1 yr Follow Up Urology Med: Sildenafil, Tamsulosin, Finasteride Antibiotic Allergy: None Blood Thinner: None PSA: 02/13/2025 PSA: 0.[address] Light Required: No Accompanied by: Self / Same As Patient Allergies NUT FLAVOR Allergy (Unknown, Uncoded 02/21/25 13:32) ANAPHYLAXIS HPI Comments Details: Omid ORTIZ is a very pleasant male. He is a patient of Dr Gallo. He was seen in the office today for the following urologic conditions. - lower urinary tract symptoms - erectile dysfunction Yearly follow-up Works at a [employer] Continue good response to combination therapy for urinary emptying Continue good response to on demand sildenafil PSA stable May reduce finasteride to every other day Recent injury with quad tear on left side Erectile dysfunction Responsive to on demand sildenafil Recent job change now working for a [employer] Lower Urinary Tract Symptoms:? Current visit is for?further evaluation of, lower urinary tract symptoms, predominate obstructive symptoms - progressive through single agent medication ? Current treatment includes?alpha genie - tamsulosin 0.8 mg and finasteride ? Prostate Symptom Score?04/07 Moderate (9-19), Bother 3.? Symptoms include?04/07 , incomplete emptying, weak stream, nocturia (>2), and are progressing.? PSA 03/10 1.3, 02/10 1.6, 02/11 0.9 ? Results from testing include? uroflow was performed ?No ? transrectal ultrasound ?No ? renal/bladder us ?No ? Prostate volume?30-50gm.? Testing at next visit will include?bladder scan.? Treatment plan?Continue with increased dose tamsulosin [facility] Medical History Eczema Surgical History History of knee surgery History of surgery History of cataract surgery Family History Father No problems noted. Mother No problems noted. Sister Cervical cancer Social History Housing: House Alcohol intake: current Alcohol intake frequency: a few times a month Patient Tobacco Use Status: Never used Tobacco e-Cigarette/Vaping Use: Never Used Second Hand Smoke Exposure: No service: No Current occupational status: employed Cognitive needs: Yes (Cane) Hearing needs: No Vision needs: Yes (Glasses) Review of Systems Const Denies chills and Denies fever(s) Card Reports no additional complaints and Denies syncope Resp Denies cough GI Denies abdominal pain and Denies heartburn Reports as per HPI and Denies change in libido Neuro Denies syncope Psych Denies change in libido Endo Denies change in libido Physical Exam Const General: cooperative, healthy appearing, comfortable and no acute distress Orientation/consciousness: patient oriented x3 HEENT Face and sinus: Yes normal facial exam Mouth: moist mucous membranes Neck Neck: Yes normal visual inspection, Yes full ROM and Yes trachea midline Chest Chest palpation & inspection: normal inspection of the chest Resp Effort & Inspection: normal respiratory effort, able to speak in complete sentences and no respiratory distress GI Inspection: Yes normal to inspection Back/Spine/Pelvis Cervical Spine: normal cervical lordosis Thoracic/Lumbar Spine: thoracic and lumbar spine normal to inspection Skin General skin exam: no rashes or lesions noted Neuro General: patient oriented x3, gait normal, tone normal and moves all extremities Extrem General: Yes normal to inspection and Yes capillary refill normal Assessment & Plan Assessment & Plan (1) Weak urinary stream: Code(s): R39.12 - Poor urinary stream Category: Medical (2) Nocturia more than twice per night: Code(s): R35.1 - Nocturia Category: Medical (3) Erectile dysfunction: Code(s): N52.9 - Male erectile dysfunction, unspecified Category: Medical Qualifiers: Erectile dysfunction type: vasculogenic Plan Twelve month follow-up Medications: Refilled tamsulosin 0.8 mg (2 x 0.4 mg) PO BEDTIME 180 caps 3RF 90 days R35.1 - Nocturia Patient Instructions: This note is constructed using voice recognition software. While every effort has been made to ensure accuracy returning officer errors may have been included. Imaging studies, laboratory and physical exam results were discussed and reviewed in detail. No major barriers to patient understanding were identified. An opportunity to ask questions regarding the treatment plan was provided. All questions were answered. The patient expressed understanding and agreement with the above treatment plan. The patient is aware they should contact our office by phone for worsening of their current condition or the appearance of new urologic symptoms. Compliance is encouraged with any medications and followup testing that is ordered. It is a privilege to participate in the urologic care of your patient. If you have any questions or concerns regarding treatment for the above conditions, or other urologic issues, please do not hesitate to contact me. The office telephone contact is [phone]. Sincerely, Dr Brijesh Camejo MD, [facility] - Urology Compassionate Specialist Care for the Genitourinary System Coding Level of Care Code Est Pt Level 4 (29632) Complex EM visit Add On G2211 Diagnoses Weak urinary stream R39.12 Nocturia more than twice per night R35.1 Erectile dysfunction N52.9 Erectile dysfunction type: vasculogenic
--- OUTSIDE RECORDS SUMMARY | 2025-02-21 16:11 | XMS_ITS | Patient Health Record ---
Author Organization [facility] Address [address] [facility] [place] [address] Care Team Providers Care Crew Member Name Role Phone Cleo MUNROE, Farhan Primary Care Provider Amalia Fay Unavailable [phone] Allergies Allergen (clinical drug ingredient) Drug/Non Drug [...] Insured Coverage Start Date Coverage End Date [facility] [address] [place] [address] [phone] [id number] Omid Jones Self - patient is the insured Medical (General) History Medical History History ICD Code Eczema Surgical History Surgery Date(Month/Year) cataract surgery
--- OUTSIDE RECORDS SUMMARY | 2025-02-21 16:11 | XMS_ITS | Clinical Summary ---
Author Organization [facility] Address [address] [place] [address] Care Team Providers Care Imaging Scheduler Name Role Phone Jovani Galloway Unavailable [phone] Jovani Galloway Primary Care Provider Allergies Active [...] Team Description 01/18/2025 11:00 AM EDT Follow-Up [facility] Department of Orthopedic Surgery [address] [place] [address] Monster Garcia DO Quadriceps tendon rupture, left, sequela (Primary Dx) 12/21/2024 2:15 PM EDT Follow-Up [facility] of Orthopedic Surgery [address] [place] [address] Monster Garcia DO Quadriceps tendon rupture, left, sequela (Primary Dx) 12/07/2024 2:00 PM EDT Follow-Up [facility] of Orthopedic Surgery [address] [place] [address] Monster Garcia DO Quadriceps tendon rupture, left, sequela (Primary Dx) from Last 3 Months Social History Tobacco Use Types Packs/Day Years Used Date Smoking Tobacco: Never Smokeless Tobacco: Never Tobacco Cessation:Counseling Given: Not Answered [facility] Utilities Answer Date Recorded In the past 12 months has th e electric, gas, oil, or water company threatened to shut off services in your [...] any time in the past 12 m [facility], were you homeless or living in a care home (including now)? No 10/20/2024 Sex and Gender Information Value Date Recorded Sex Assigned at Not on file Legal Sex Male 6:54 PM EDT Gender Identity Not on file Sexual Orientation Not on file Last Filed Vital Signs Vital Sign Reading [...] Description 03/01/2025 1:00 PM EST Office Visit [facility] Department of Orthopedic Surgery [address] [id number] Monster Garcia, DO [address] [place] [address] Health Maintenance Due Date Last Done Comments [...] this topic Medical Devices Implanted Type Area Car Tracer Device Identifier Shelf Expiration Date Model / Serial / Lot 4.5mm Healicoil Suture [place], W/Two Minitape Sutures - [id number] Implanted:Qty : 1 on 10/21/2024 by Monster Garcia DO at [facility] Surgical Fixation Device [employer] [id number] / / Description:LOT: [id number] EXPIRATION: 12/29/2028 4.5mm Healicoil Suture [place], W/Two Minitape Sutures - [id number] Implanted:Qty : 1 on 10/21/2024 by Monster Garcia DO at [facility] Surgical Fixation Device [employer] [id number] / / Description:LOT: [id number] EXPIRATION: 07/07/2029 Insurance [facility] [employer] Advance Directives For more information, please contact: [phone] * Full Code (Latest Code Status on File) Date Activated Date Inactivated Comments 10/20/2024 12:47 PM 10/26/2024 5:17 PM Care Teams Imaging Scheduler Relationship Specialty Start Date End Date Jovani Galloway PA [address] [place] [address] DENISSE FELICITY [id number] PCP - Insurance Payer PCP 10/15/24 Jovani Galloway PA [address] [place] [id number] PCP - General Family Medicine 10/15/24
== END 2025-02-21 14:01 | disposition home or self-care (01) ==
LOC: HO.HUSH 13:17
PROVIDERS: PCP Physician Assistant; Visit Provider Urology
DX: R39.12 Poor urinary stream (principal); R35.1 Nocturia; N52.9 Male erectile dysfunction, unspecified
CPT/HCPCS: 99214

== ENCOUNTER 2025-03-22 07:51 | Outpatient (AMB) | payer OTHER, SELFPAY ==
--- OUTSIDE RECORDS SUMMARY | 2025-03-22 07:58 | XMS_ITS | Clinical Summary ---
Author Organization [facility] Address [address] [place] [address] Phone Care Team Providers Care Management Engineer Name Role Phone Flower Gamble MD Primary Care Provider [phone] Social History Tobacco Use Types Packs/Day Years [...] Pneumococcal Vaccine: 50+ Ye ars (1 of 1 - PCV) 07/15/2017 Zoster Vaccines (1 of 2) 07/15/2017 Depression Screening 04/20/2024 Cholesterol Screening (Lipid Panel) 11/28/2024 HIV Screening 11/28/2024 Hepatitis C Screening 11/28/2024 Social Influencers of Health Screening 11/28/2024 COVID-19 Vaccine (1 - 2024-2 6 season) 2024 Influenza Vaccine (#1) 2024 RSV [...] on patient's age to complete this topic Insurance Care Teams Management Engineer Relationship Specialty Start Date End Date Flower Gamble MD [address] [place] [phone] PCP - General Hospitalist Medicine 11/30/24
--- OUTSIDE RECORDS SUMMARY | 2025-03-22 07:58 | XMS_ITS | Clinical Summary ---
Author Organization [facility] Address [address] [place] [address] Care Team Providers Care Archival Studies Professor Name Role Phone Jovani Galloway Unavailable [phone] Jovani Galloway Primary Care Provider Allergies Active [...] Encounters Date Type Department Care Team Description 03/01/2025 1:00 PM EST Office Visit [facility] Department of Orthopedic Surgery [address] [place] [address] Monster Garcia DO 01/18/2025 11:00 AM EDT Follow-Up [facility] [address] [place] [id number] Monster Garcia DO Quadriceps tendon rupture, left, sequela (Primary Dx) 12/21/2024 2:15 PM EDT Follow-Up [facility] [address] [place] [address] Monster Garcia DO Quadriceps tendon rupture, left, sequela (Primary Dx) from Last 3 Months Social History Tobacco Use Types Packs/Day Years Used Date Smoking Tobacco: Never Smokeless Tobacco: Never Tobacco Cessation:Counseling Given: Not Answered [facility] Utilities Answer Date Recorded In the past [...] any time in the past 12 m [facility], were you homeless or living in a intermediate (including now)? No 10/20/2024 Sex and Gender Information Value Date Recorded Sex Assigned at Not on file Legal Sex Male 6:54 PM EDT Gender Identity Not on file Sexual Orientation Not on file COVID-19 Exposure Response Date Recorded In the last 10 days, have yo u been in contact with someone who was confirmed or suspected to have Coronavirus/COVID-19? No / Unsure 03/01/2025 12:34 PM EST Last Filed Vital Signs Vital Sign Reading [...] Care Team (Late st Contact Info) Description 05/03/2025 1:00 PM EST Office Visit [facility] Department of Orthopedic Surgery [address] [place] [address] Monster Garcia, [address] [phone] Health Maintenance Due Date Last Done Comments [...] Vaccines (1 of 2) 07/15/2017 COVID-19 Vaccine ( - 2024-2 6 season) 2024 Influenza Vaccine (#1) 2024 HPV [...] this topic Medical Devices Implanted Type Area [employer] Superintendent Device Identifier Shelf Expiration Date Model / Serial / Lot 4.5mm Healicoil Suture [place], W/Two Minitape Sutures - [id number] Implanted:Qty : 1 on 10/21/2024 by Monster Garcia DO at [facility] Surgical Fixation Device [employer] [id number] / / Description:LOT: [id number] EXPIRATION: 12/29/2028 4.5mm Healicoil Suture [place], W/Two Minitape Sutures - [id number] Implanted:Qty : 1 on 10/21/2024 by Monster Garcia DO at [facility] Surgical Fixation Device [employer] [id number] / / Description:LOT: [id number] EXPIRATION: 07/07/2029 Insurance [facility] NAV[facility]ATE Advance Directives For more information, please contact: [phone] * Full Code (Latest Code Status on File) Date Activated Date Inactivated Comments 10/20/2024 12:47 PM 10/26/2024 5:17 PM Care Teams Archival Studies Professor Relationship Specialty Start Date End Date Jovani Galloway PA [address] [place] [address] FELICITY SALCEDO [id number] PCP - Insurance Payer PCP 10/15/24 Jovani Galloway PA [address] [place] [id number] PCP - General Family Medicine 10/15/24
--- OUTSIDE RECORDS SUMMARY | 2025-03-22 07:58 | XMS_ITS | Encounter Summary ---
Author Organization [facility] [employer] Address [address] [place] [address] Care Team Providers Care Performance Improvement Manager Name Role Phone Flower Gamble MD Primary Care Provider [phone] Encounter Details Date Type Department Care Team (Late st Contact Info) Description 11/30/[address] [facility] - Main Lab [address] [place] [address] Flower Gamble MD [address] [place] [address] Other asthma Social History Tobacco [...] LAB CHEMISTRY METHOD 11/30/2024 3:38 PM EDT [facility] Potassium 3.2(L) 3.5 - 5.5 mmol/L LAB CHEMISTRY METHOD 11/30/2024 3:38 PM EDT [facility] Chloride 106 96 - 110 mmol/L LAB CHEMISTRY METHOD 11/30/2024 3:38 PM EDT [facility] CO2 27 21 - 32 mmol/L LAB CHEMISTRY METHOD 11/30/2024 3:38 PM [facility] Anion Gap 8 3 - 11 LAB CHEMISTRY METHOD 11/30/2024 3:38 PM [facility] Glucose 69(L) 70 - 100 mg/dL LAB CHEMISTRY METHOD 11/30/2024 3:38 PM [facility] BUN 16 5 - 25 mg/dL LAB CHEMISTRY METHOD 11/30/2024 3:38 PM [facility] Creatinine 0.98 0.70 - 1.30 mg/dL LAB CHEMISTRY METHOD 11/30/2024 3:38 PM [facility] eGFR 90 >=60 mL/min/1. 73m2 LAB CHEMISTRY METHOD 11/30/2024 3:38 PM [facility] Comment:Calculation based on the Chronic Kidney Disease Epidemiology Collaboration (CKD-EPI) equation refit without adjustment for race. BUN/Creatinine Ratio 16.3 LAB CHEMISTRY METHOD 11/30/2024 3:38 PM [facility] Calcium 9.0 8.5 - 10.5 mg/dL LAB CHEMISTRY METHOD 11/30/2024 3:38 PM [facility] AST (SGOT) 9(L) 10 - 42 unit/L LAB CHEMISTRY METHOD 11/30/2024 3:38 PM [facility] ALT (SGPT) 17 10 - 60 unit/L LAB CHEMISTRY METHOD 11/30/2024 3:38 PM [facility] Alkaline Phosphatase 68 42 - 121 unit/L LAB CHEMISTRY METHOD 11/30/2024 3:38 PM [facility] Total Protein 5.9(L) 6.0 - 8.0 g/dL LAB CHEMISTRY METHOD 11/30/2024 3:38 PM [facility] Albumin 3.7 3.2 - 5.0 g/dL LAB CHEMISTRY METHOD 11/30/2024 3:38 PM [facility] Total Bilirubin 0.5 0.0 - 1.4 mg/dL LAB CHEMISTRY METHOD 11/30/2024 3:38 PM EDT [facility] Blood Venous blood specimen / Unknown Venipuncture / Unknown 11/30/2024 4:48 AM EDT 11/30/2024 11:54 AM EDT Flower Gamble MD LAB BLOOD ORDERABLES Final Resul t [facility] [address] [place] [address], [place] [phone] * (ABNORMAL) Complete blood count (11/30/2024 4:48 AM EDT) WBC 5.4 4.8 - 10.8 K/mcL LAB HEMETOLOGY METHOD 11/30/2024 1:30 PM EDT [facility] RBC 5.00 4.50 - 5.50 M/mcL LAB HEMETOLOGY METHOD 11/30/2024 1:30 PM EDT [facility] Hemoglobin 14.1 13.5 - 17.5 g/dL LAB HEMETOLOGY METHOD 11/30/2024 1:30 PM EDT [facility] Hematocrit 44.5 42.0 - 54.0 % LAB HEMETOLOGY METHOD 11/30/2024 1:30 PM EDT [facility] MCV 89.2 79.0 - 98.0 FL LAB HEMETOLOGY METHOD 11/30/2024 1:30 PM EDT [facility] MCH 28.3 27.0 - 32.0 pcg LAB HEMETOLOGY METHOD 11/30/2024 1:30 PM EDT [facility] MCHC 31.7(L) 32.0 - 37.0 g/dL LAB HEMETOLOGY METHOD 11/30/2024 1:30 PM EDT [facility] RDW 13.3 11.0 - 15.0 % LAB HEMETOLOGY METHOD 11/30/2024 1:30 PM EDT [facility] Platelets 204 130 - 400 K/mcL LAB HEMETOLOGY METHOD 11/30/2024 1:30 PM EDT [facility] MPV 11.3(H) 7.0 - 11.0 FL LAB HEMETOLOGY METHOD 11/30/2024 1:30 PM EDT [facility] NRBC 0.0 <1.0 % LAB HEMETOLOGY METHOD 11/30/2024 1:30 PM EDT [facility] NRBC Absolute 0.00 <0.10 K/mcL LAB HEMETOLOGY METHOD 11/30/2024 1:30 PM EDT [facility] Blood Venous blood specimen / Unknown Venipuncture / Unknown 11/30/2024 4:48 AM EDT 11/30/2024 11:54 AM EDT us Flower Gamble MD LAB BLOOD ORDERABLES Final Resul t [facility] [address] [place] [address], documented in this encounter Visit Diagnoses Diagnosis Other asthma documented in this encounter Care Teams Performance Improvement Manager Relationship Specialty Start Date End Date Flower Gamble MD [address] [place] [address] PCP - General Hospitalist Medicine 11/30/24 documented as of this encounter
--- NOTE | 2025-03-22 08:02 | A.OFFPC_ITS ---
Vital Signs 03/22/25 08:04 Height 6 ft 2 in Weight 235 lb 7.259 oz BMI 30.2 BP 126/80 Respiration 16 Pulse 96 Pulse Source Pulse Oximeter Pulse Oximetry (%) 97 Intake Visit Reasons: Lt. Foot Issues after Surgery Slackline Operator Required: No Accompanied by: Self / Same As Patient Allergies NUT FLAVOR Allergy (Unknown, Uncoded 03/22/25 08:12) ANAPHYLAXIS Medication List - Last Reconciled 03/22/25 by Jovani Galloway PA-C finasteride 5 mg PO BEDTIME promethazine 25 mg (2 x 12.5 mg) PO BEDTIME 90 days sildenafil 100 mg PO ONCE PRN 30 days tamsulosin 0.8 mg (2 x 0.4 mg) PO BEDTIME 90 days Ventolin HFA 90 mcg/actuation (albuterol sulfate) 2 puffs inhalation Q6H PRN NS Tobacco use date assessed: 01/31/25 Dental Screening Dental Screen Date: 01/31/25 HPI Lt. Foot Issues after Surgery HPI Details Patient is a 59-year-old male here today for a problem visit Patient has a past medical history significant for asthma, eczema, erectile dysfunction and BPH. Concern--> The patient reports the left foot has been falling asleep for the past four weeks, which began after the removal of a brace worn following an accident status post left hamstring tendon repair. This sensation is described as more urgent and severe than the general numbness the patient has experienced since the accident. The patient also notes intermittent numbness and tingling that comes and goes but has generally improved over time. The patient reports daily swelling in both feet and ankles, which is attributed to increased activity and walking since returning to work about a month ago. The patient also experiences frequent cracking in the left ankle upon standing and walking after periods of rest. An attempt to use compression socks did not provide lasting relief. Patient has a history of low back issues that has been resolved for quite some time now, at this time does not report any low back pain.. .. Left quadriceps tendon rupture status post repair: The patient has a history of quadriceps tendon rupture, which occurred while walking, leading to a fall and subsequent surgery on October 21. The right ankle twisted, causing the knee to lock up, resulting in a fall where the patient landed awkwardly, leading to the tendon rupture. .. PFSH Medical History Eczema Surgical History History of knee surgery History of surgery History of cataract surgery Family History Father No problems noted. Mother No problems noted. Sister Cervical cancer Social History Housing: House Alcohol intake: current Alcohol intake frequency: a few times a month Patient Tobacco Use Status: Never used Tobacco e-Cigarette/Vaping Use: Never Used Second Hand Smoke Exposure: No service: No Current occupational status: employed Cognitive needs: Yes (Cane) Hearing needs: No Vision needs: Yes (Glasses) Questionnaire Thrive Questionnaire Date Thrive assessed: 01/31/25 I am a: Patient What is your living situation today?: I choose not to answer this question Within the past 12 months, did the food you bought not last and you didn't have the money to get more?: I choose not to answer this question Within the past 12 months, did you worry whether your food would run out before you got money to buy more?: I choose not to answer this question Do you have trouble paying for medicines?: No Do you have trouble getting transportation to medical appointments?: No Do you have trouble paying your heating and electricity bill?: No Do you have trouble taking care of your child, family member or friend?: No Do you have trouble with day-to-day activities such as bathing, preparing meals, shopping, managing finances, etc.?: No Are you currently unemployed and looking for a job?: No Are you interested in more education?: No Please select the resources that you would like help with: None Currently or been in a relationship where the following occur: I choose not to answer THRIVE Score: 0 PASTOR-7 AMB Questionnaire PASTOR-7 Date PASTOR - 7 assessed: 01/31/25 Source: Developed by Drs. Flo French, Irais Espinoza, Nixon Barroso and colleagues, with an educational reny from [employer]. Review of Systems Const Denies headache(s) Eyes Denies loss of vision ENT Denies vertigo, Denies dizziness, Denies headache(s) and Denies sore throat Card Denies chest pain, Denies leg edema and Denies lightheadedness Resp Denies cough, Denies hemoptysis and Denies wheezing GI Denies abdominal pain, Denies melena, Denies constipation, Denies diarrhea and Denies vomiting Denies dysuria, Denies urinary frequency and Denies urinary urgency Musc Denies arthralgias, Denies joint swelling, Denies numbness and Denies tingling Neuro Denies Abnormal speech present, Denies behavioral changes, Denies vertigo, Denies dizziness, Denies headache(s), Denies loss of vision, Denies memory loss, Denies numbness and Denies tingling Psych Denies anxiety, Denies behavioral changes, Denies depression, Denies memory loss and Denies panic attacks Nabeel/Lymph Denies easy bleeding and Denies easy bruising Aller/Immun Denies wheezing Physical exam (Primary Care) Vital Signs: Last Vital Signs Pulse 96 03/22/25 08:04 Resp 16 03/22/25 08:04 BP 126/80 03/22/25 08:04 Pulse Ox 97 03/22/25 08:04 BMI result Body Mass Index 30.2 Tobacco/Smoking Status: Tobacco use Status Tobacco use date assessed 01/31/25 03/22/25 08:08 Patient Tobacco Use Status Never used Tobacco 03/22/25 08:08 e-Cigarette/Vaping Use Never Used 03/22/25 08:08 Thrive Assessment: Date of Thrive Assessment Date Thrive assessed 01/31/25 03/22/25 08:08 Currently or been in a relationship where the following occur: I choose not to answer Const General: healthy appearing, no acute distress, alert and awake Nutritional Appearance: well nourished Orientation/consciousness: oriented to person, oriented to place and oriented to time HENMT Ears: TM's normal bilaterally General nose exam: Normal nasal mucous membranes and turbinates present Eyes Conjunctivae: conjunctivae normal Sclerae: sclerae normal Pupils: Equal, round and reactive pupils present Neck Neck: Yes no lymphadenopathy and Yes no JVD Thyroid: Thyroid normal Carotids: no bruits Resp Effort & Inspection: normal respiratory effort and not tachypneic Auscultation: no crackles, no rales, no rhonchi and no wheezes Cardio Rate: regular rate Rhythm: regular rhythm Heart sounds: no murmurs and normal S1 and S2 GI Palpation (GI): Soft to palpation, nontender, no hepatomegaly and no splenomegaly Auscultation: normal bowel sounds Skin General skin exam: no rashes or lesions noted and dry skin Neuro General: oriented to person, oriented to place and oriented to time Cranial nerves: Yes Equal, round and reactive pupils present Speech: No Abnormal speech present Gait exam (Neuro): Normal gait present Motor exam (neuro): no tremor noted Extrem Other: LEFT LOWER EXTREMITY: NEUROVASCULARLY INTACT IN THE ANKLE AND FOOT, NO NOTABLE SKIN CHANGES. HAS GOOD SENSATION TO LIGHT TOUCH OVER THE DORSUM AND PLANTAR REGION OF HIS LEFT FOOT. 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 While a lumbar spine origin for the nerve symptoms is a possibility, a distal entrapment in the ankle/foot is more likely given the history. A significant vascular etiology is less likely given the reassuring findings of good capillary refill on physical exam. An EMG of the left lower extremity will be ordered to assess for sensory neuropathy and help localize the site of nerve irritation. A referral will be made to Podiatry for specialist evaluation and management, which may include interventions like a nerve injection. The patient was advised to discuss targeted therapy for ankle neuropathy with the current physical therapist.
[2025-03-22 08:04] VITALS: BP 126/80; PULSE 96; RESP 16; O2SAT 97; BMI 30.2
== END 2025-03-22 08:30 | disposition home or self-care (01) ==
LOC: HO.HMCH 07:52
PROVIDERS: PCP Physician Assistant; Visit Provider Physician Assistant
DX: G57.30 Lesion of lateral popliteal nerve, unspecified lower limb (principal)